=== PATIENT | male | born 1990 | race Caucasian/White ===

== ENCOUNTER 2018-11-02 13:03 | Emergency (ER) | payer BC, OTHER ==
[~2018-11-02] VITALS: Ht 185.4 cm; Wt 117.9 kg
[~2018-11-02 13:03] MED LIST: AMLO5TAB2 PO; NITR100C3 PO; PHEN50TA PO; QTP100T PO; TRAZODONE PO
--- OUTSIDE RECORDS SUMMARY | 2018-11-02 13:08 | XMS REPORT ---
Author Author NATI CARLEY [facility] Address [address] [place] [address] Care Team Providers Care Rope Twisting Machine Operator Name Role Phone NATI CARLEY Unavailable PROBLEMS Type Condition ICD9-CM Code [id number] Code Onset Dates Condition Status SNOMED Code Problem Bipolar disorder, in partial remission, most recent episode manic F31.73 Active 68504189 Problem Bipolar 1 disorder F31.9 Active 042017555 Problem Anxiety, generalized F41.1 Active 13524597 Problem Essential hypertension I10 Active 85190300 ALLERGIES No Known Allergies ENCOUNTERS Encounter Location Date Diagnosis [place] [id number] [place] [address]39[address] 7946 May, [place] [id number] [place] [address] 88323- 2745 Apr, Bipolar disorder, in partial remission, most recent episode manic F31.73 [place] [address] [place] [address] 80806- 5023 Dec, Bipolar disorder, in partial remission, most recent episode manic F31.73 and High risk medication use Z79.899 [place] [id number] [place] [address] 58280- 3631 14 Sep, 2017 Bipolar disorder, in partial remission, most recent episode manic F31.73 [place] [address] [place] [address] 82982- 3118 Sep, Essential hypertension I10 and Bipolar 1 disorder F31.9 [place] [address] [place] [address] 46221- 3410 08 Sep, 2017 Essential hypertension I10 and Bipolar 1 disorder F31.9 [place] [id number] [place] [address] 99360- 9247 Aug, Bipolar disorder, in partial remission, most recent episode manic F31.73 [facility] [address], [place] [address] Jul, Bipolar 1 disorder F31.9 and Anxiety, generalized F41.1 [facility] [id number] [address] Jul, Essential hypertension I10 and Bipolar 1 disorder F31.9 [facility] [id number], [place] [address] Jul, [facility] [address] [place] [id number] [place] [address] Jan, Essential hypertension I10 [facility] [address] [id number], [place] [address] Dec, Essential hypertension I10 [facility] [address] [id number], [place] [address] Nov, Upper respiratory tract infection, unspecified type J06.9 and Essential hypertension I10 [facility] [id number], [place] [address] Oct, [facility] [address] [id number] [id number] Oct, IMMUNIZATIONS No Known Immunizations SOCIAL HISTORY Never Assessed REASON FOR VISIT f/u Paula PLAN OF CARE Activity Details Follow Up 3 Months Reason: VITAL SIGNS Height 73 in 2017-12-15 Weight 262.7 lbs 2017-12-15 Heart Rate 72 bpm 2017-12-15 Respiratory Rate 20 2017-12-15 BMI 34.66 kg/m2 2017-12-15 Blood pressure systolic 130 mmHg 2017-12-15 Blood pressure diastolic 74 mmHg 2017-12-15 MEDICATIONS Medication Instructions Dosage Frequency Start Date End Date Duration Status Lisinopril 20 mg Orally Once a day 1 tablet 24h Active Seroquel 100 MG Orally at bedtime 0.5 tablet Active [place] Carbonate 600 MG Orally Twice a day 1 capsule 12h 30 days Active RESULTS No Results PROCEDURES No Known procedures INSTRUCTIONS MEDICATIONS ADMINISTERED No Known Medications MEDICAL (GENERAL) HISTORY Type Description Date Medical History Essential hypertension Hospitalization History [facility] 2009 Hospitalization History [place] 2010 [address] [place] [address]
--- OUTSIDE RECORDS SUMMARY | 2018-11-02 13:08 | XMS REPORT ---
Author Author NATI CARLEY [facility] Address [address] [place] [address] Care Team Providers Care Cigarette Vendor Name Role Phone NATI CARLEY Unavailable PROBLEMS Type Condition ICD9-CM Code [id number] Code Onset Dates Condition Status SNOMED Code Problem Bipolar disorder, in partial remission, most recent episode manic F31.73 Active 88207609 Problem Bipolar 1 disorder F31.9 Active 818217800 Problem Anxiety, generalized F41.1 Active 02027384 Problem Essential hypertension I10 Active 22130716 ALLERGIES No Information ENCOUNTERS Encounter Location Date Diagnosis [place] [address] [place] [address] 05936- 8540 Jul, [facility] [id number] [place] [address] 49328- 0603 May, Bipolar disorder, in partial remission, most recent episode manic F31.73 [facility] [id number] [place] [address] 03155- 7072 Apr, Bipolar disorder, in partial remission, most recent episode manic F31.73 and High risk medication use Z79.899 [facility] [id number] [place] [address] 21268- 2917 Apr, Bipolar disorder, in partial remission, most recent episode manic F31.73 [facility] [address] [place] [address] 52881- 2459 Dec, Bipolar disorder, in partial remission, most recent episode manic F31.73 and High risk medication use Z79.899 [place] [address], [place] [address] Sep, Bipolar disorder, in partial remission, most recent episode manic F31.73 [facility] [address], [place] [address] Sep, Essential hypertension I10 and Bipolar 1 disorder F31.9 [facility] [address], [place] [address] Sep, Essential hypertension I10 and Bipolar 1 disorder F31.9 [facility] [id number] [place] [address] 75691- 4074 Aug, Bipolar disorder, in partial remission, most recent episode manic F31.73 [facility] [address] [place] [address] 05581- 3785 Jul, Bipolar 1 disorder F31.9 and Anxiety, generalized F41.1 [facility] [address], [place] [address] 9[address] Jul, Essential hypertension I10 and Bipolar 1 disorder F31.9 [facility] [address] [place] [address] [place] [address] Jul, [facility] [address] [place] [address] [place] [address] Jan, Essential hypertension I10 [facility] [address] [place] [id number] [place] [address] Dec, Essential hypertension I10 [facility] [address] [place] [address] [place] [address] Nov, Upper respiratory tract infection, unspecified type J06.9 and Essential hypertension I10 [facility] [id number] [address] Oct, Essential hypertension I10 [place] [id number][place] [address] Oct, IMMUNIZATIONS No Known Immunizations SOCIAL HISTORY Never Assessed REASON FOR VISIT BH f/u DASH-MARÍA PLAN OF CARE Activity Details Follow Up 4 Weeks Reason: VITAL SIGNS Height 73 in 2018-04-05 Weight 259 lbs 2018-04-05 Heart Rate 82 bpm 2018-04-05 Respiratory Rate 20 2018-04-05 BMI 34.17 kg/m2 2018-04-05 Blood pressure systolic 128 mmHg 2018-04-05 Blood pressure diastolic 82 mmHg 2018-04-05 MEDICATIONS Medication Instructions Dosage Frequency Start Date End Date Duration Status Seroquel 25 MG Orally at bedtime 1 tablet 14 days Active Lisinopril 20 mg Orally Once a day 1 tablet 24h Active Abilify 5 MG Orally Once a day 1 tablet 24h Apr, 30 day(s) Active [place] Carbonate 600 MG Orally Twice a day 1 capsule 12h 30 days Active RESULTS No Results PROCEDURES No Known procedures INSTRUCTIONS MEDICATIONS ADMINISTERED No Known Medications MEDICAL (GENERAL) HISTORY Type Description Date Medical History Essential hypertension Hospitalization History [facility] 2009 Hospitalization History [place] 2010 Hospitalization History [address] [place] [address]
--- OUTSIDE RECORDS SUMMARY | 2018-11-02 13:08 | XMS REPORT ---
Author Author NATI CARLEY [facility] Address [address] [place] [address] Care Team Providers Care Regulator Tester Name Role Phone NATI CARLEY Unavailable PROBLEMS Type Condition ICD9-CM Code [id number] Code Onset Dates Condition Status SNOMED Code Problem Bipolar disorder, in partial remission, most recent episode manic F31.73 Active 08427242 Problem Bipolar 1 disorder F31.9 Active 769140733 Problem Anxiety, generalized F41.1 Active 52072852 Problem Essential hypertension I10 Active 05916096 ALLERGIES No Known Allergies ENCOUNTERS Encounter Location Date Diagnosis [place] [address] [place] [address] 89372- 0306 Jul, [facility] [id number] [place] [address] 61171- 6615 May, Bipolar disorder, in partial remission, most recent episode manic F31.73 [place] [address] [place] [address] 48127- 4476 Apr, Bipolar disorder, in partial remission, most recent episode manic F31.73 and High risk medication use Z79.899 [facility] [address] [place] [address] 51435- 6178 Apr, Bipolar disorder, in partial remission, most recent episode manic F31.73 [facility] [address] [place] [address] 60851- 3142 Dec, Bipolar disorder, in partial remission, most recent episode manic F31.73 and High risk medication use Z79.899 [place] [address], [place] [address] Sep, Bipolar disorder, in partial remission, most recent episode manic F31.73 [facility] [id number], [place] [address] 6[address] Sep, Essential hypertension I10 and Bipolar 1 disorder F31.9 [facility] [address], [place] [address] 1407 Sep, Essential hypertension I10 and Bipolar 1 disorder F31.9 [facility] [address], [place] [address] Aug, Bipolar disorder, in partial remission, most recent episode manic F31.73 [facility] [address]100[place], [place] [address] Jul, Bipolar 1 disorder F31.9 and Anxiety, generalized F41.1 [place] [address], [place] [address]- 6[address] Jul, Essential hypertension I10 and Bipolar 1 disorder F31.9 [facility] [address] [place], [id number] [address] Jul, [facility] [address] [id number] [address] Jan, Essential hypertension I10 [facility] [id number], [place] [address] Dec, Essential hypertension I10 [facility] [address] [place], [id number], [place] [address] Nov, Upper respiratory tract infection, unspecified type J06.9 and Essential hypertension I10 [facility] [id number] [address] Oct, Essential hypertension I10 [facility] [id number] [id number] Oct, IMMUNIZATIONS No Known Immunizations SOCIAL HISTORY Never Assessed REASON FOR VISIT f/u PLAN OF CARE Activity Details Follow Up 2 Months Reason: VITAL SIGNS Height 73 in 2018-05-11 Weight 267.5 lbs 2018-05-11 Heart Rate 96 bpm 2018-05-11 Respiratory Rate 20 2018-05-11 BMI 35.29 kg/m2 2018-05-11 Blood pressure systolic 160 mmHg 2018-05-11 Blood pressure diastolic 82 mmHg 2018-05-11 MEDICATIONS Medication Instructions Dosage Frequency Start Date End Date Duration Status Lisinopril 20 mg Orally Once a day 1 tablet 24h Active [place] Carbonate 600 MG Orally Twice a day 1 capsule 12h 30 days Active Abilify 5 MG Orally Once a day 1 tablet 24h Apr, 30 days Active RESULTS No Results PROCEDURES No Known procedures INSTRUCTIONS MEDICATIONS ADMINISTERED No Known Medications MEDICAL (GENERAL) HISTORY Type Description Date Medical History Essential hypertension Hospitalization History [facility] 2009 Hospitalization History [place] 2010 [address] [place] [address]
--- OUTSIDE RECORDS SUMMARY | 2018-11-02 13:08 | XMS REPORT ---
Author Author STEVE BRITO [facility] Address [address] [address] Care Team Providers Care Forger Helper Name Role Phone STEVE BRITO Unavailable PROBLEMS Type Condition ICD9-CM Code [id number] Code Onset Dates Condition Status SNOMED Code Problem Essential hypertension I10 Active 52382495 ALLERGIES Substance Reaction Event Type Date Status N.K.D.A. Unknown Non Drug Allergy Oct, Unknown SOCIAL HISTORY No smoking Hx information available PLAN OF CARE VITAL SIGNS MEDICATIONS Medication Instructions Dosage Frequency Start Date End Date Duration Status Lisinopril 10 MG Active RESULTS No Results PROCEDURES No Known procedures IMMUNIZATIONS No Known Immunizations
--- OUTSIDE RECORDS SUMMARY | 2018-11-02 13:08 | XMS REPORT ---
Author Author RAMÍREZ CISNEROS Organization [facility] Address [address] [place] [address] Care Team Providers Care Ceramic Design Engineer Name Role Phone RAMÍREZ CISNEROS Unavailable PROBLEMS Type Condition ICD9-CM Code [id number] Code Onset Dates Condition Status SNOMED Code Problem Bipolar disorder, in partial remission, most recent episode manic F31.73 Active 51917873 Problem Bipolar 1 disorder F31.9 Active 701028306 Problem Anxiety, generalized F41.1 Active 01821919 Problem Essential hypertension I10 Active 91810250 ALLERGIES No Information ENCOUNTERS Encounter Location Date Diagnosis [address] [address] Mar, [place] [address] [address] 13 Dec, 2017 Bipolar disorder, in partial remission, most recent episode manic F31.73 and High risk medication use Z79.899 [place] [id number] [place] [address] 70748- 0780 14 Sep, 2017 Bipolar disorder, in partial remission, most recent episode manic F31.73 [place] [id number] [place] [address] 91783- 6182 Sep, Essential hypertension I10 and Bipolar 1 disorder F31.9 [place] [id number] [place] [address] 16433- 7709 Sep, Essential hypertension I10 and Bipolar 1 disorder F31.9 [place] [address] [place] [address] 67148- 7381 Aug, Bipolar disorder, in partial remission, most recent episode manic F31.73 [place] [address] [address]- [address]3 Jul, Bipolar 1 disorder F31.9 and Anxiety, generalized F41.1 [facility] [id number], [place] [address] Jul, Essential hypertension I10 and Bipolar 1 disorder F31.9 [facility] [address] [place], [id number] [address] Jul, [facility] [address] [id number], [place] [address] Jan, Essential hypertension I10 [facility] [id number], [place] [address] Dec, Essential hypertension I10 [facility] [address] [place], [id number], [place] [address] 16 Nov, 2016 Upper respiratory tract infection, unspecified type J06.9 and Essential hypertension I10 [facility] [address] [place], [id number], [place] [address] Oct, Essential hypertension I10 [facility] [address] [id number] [address] Oct, IMMUNIZATIONS No Known Immunizations SOCIAL HISTORY Never Assessed REASON FOR VISIT Lab (walk-in) PLAN OF CARE VITAL SIGNS MEDICATIONS Unknown Medications RESULTS No Results PROCEDURES Procedure Date Ordered Result Body Site LIPID PANEL Sep 11, 2017 COMPREHEN METABOLIC PANEL Sep 11, 2017 ASSAY THYROID STIM HORMONE Sep 11, 2017 COMPLETE CBC W/AUTO DIFF WBC Sep 11, 2017 VENIPUNCT, ROUTINE* Sep 11, 2017 ASSAY OF LITHIUM Sep 11, 2017 INSTRUCTIONS MEDICATIONS ADMINISTERED No Known Medications MEDICAL (GENERAL) HISTORY Type Description Date Medical History Essential hypertension Hospitalization History [facility] 2009 Hospitalization History [place] 2010 Hospitalization History [address] 2011
--- OUTSIDE RECORDS SUMMARY | 2018-11-02 13:08 | XMS REPORT ---
Author Author NATI CARLEY [facility] Address [address] [place] [address] Care Team Providers Care Tar Heater Operator Name Role Phone NATI CARLEY Unavailable PROBLEMS Type Condition ICD9-CM Code [id number] Code Onset Dates Condition Status SNOMED Code Problem Bipolar disorder, in partial remission, most recent episode manic F31.73 Active 84555993 Problem Bipolar 1 disorder F31.9 Active 279020479 Problem Anxiety, generalized F41.1 Active 17614708 Problem Essential hypertension I10 Active 17492112 ALLERGIES No Information ENCOUNTERS Encounter Location Date Diagnosis [place] [address] [place] [address] 68691- 6290 Jul, [facility] [id number] [place] [address] 37797- 4344 May, Bipolar disorder, in partial remission, most recent episode manic F31.73 [facility] [id number] [place] [address] 13459- 7272 Apr, Bipolar disorder, in partial remission, most recent episode manic F31.73 and High risk medication use Z79.899 [facility] [id number] [place] [address] 01372- 3372 Apr, Bipolar disorder, in partial remission, most recent episode manic F31.73 [facility] [address] [place] [address] 99149- 4483 Dec, Bipolar disorder, in partial remission, most recent episode manic F31.73 and High risk medication use Z79.899 [place] [address], [place] [address] Sep, Bipolar disorder, in partial remission, most recent episode manic F31.73 [facility] [address]100[place], [place] [address]- 9[address] 11 Sep, 2017 Essential hypertension I10 and Bipolar 1 disorder F31.9 [facility] [address], [place] [address]- 97[address] 08 Sep, 2017 Essential hypertension I10 and Bipolar 1 disorder F31.9 [facility] [id number] [place] [address] 10135- 7689 Aug, Bipolar disorder, in partial remission, most recent episode manic F31.73 [facility] [address] [place] [address] 15130- 9369 Jul, Bipolar 1 disorder F31.9 and Anxiety, generalized F41.1 [place] [address], [place] [address]- [address] 26 Jul, 2017 Essential hypertension I10 and Bipolar 1 disorder F31.9 [facility] [address] [place], [place] [address] [place] [address] Jul, [facility] [address] [place] [address] [place] [address] Jan, Essential hypertension I10 [facility] [address] [id number] [place] [address] Dec, Essential hypertension I10 [facility] [address] [place] [address] [place] [address] 16 Nov, 2016 Upper respiratory tract infection, unspecified type J06.9 and Essential hypertension I10 [facility] [address] [id number] [address] Oct, Essential hypertension I10 [facility] [id number] [place] [id number] Oct, IMMUNIZATIONS No Known Immunizations SOCIAL HISTORY Never Assessed REASON FOR VISIT Lab (walk-in) PLAN OF CARE VITAL SIGNS MEDICATIONS Unknown Medications RESULTS No Results PROCEDURES Procedure Date Ordered Result Body Site COMPREHEN METABOLIC PANEL April 27, 2018 COMPLETE CBC W/AUTO DIFF WBC April 27, 2018 ASSAY OF LITHIUM April 27, 2018 ASSAY THYROID STIM HORMONE April 27, 2018 INSTRUCTIONS MEDICATIONS ADMINISTERED No Known Medications MEDICAL (GENERAL) HISTORY Type Description Date Medical History Essential hypertension Hospitalization History [facility] 2009 Hospitalization History [place] 2010 Hospitalization History [address] [place] [address]
--- OUTSIDE RECORDS SUMMARY | 2018-11-02 13:09 | XMS REPORT ---
Author Author NATI CARLEY Organization [facility] Address [address] [place] [address] Care Team Providers Care Vertical Punch Operator Name Role Phone CHRISCARLEY MONCADA Unavailable PROBLEMS Type Condition ICD9-CM Code [id number] Code Onset Dates Condition Status SNOMED Code Problem Bipolar disorder, in partial remission, most recent episode manic F31.73 Active 47361463 Problem Bipolar 1 disorder F31.9 Active 826449434 Problem Anxiety, generalized F41.1 Active 62034316 Problem Essential hypertension I10 Active 37038088 ALLERGIES No Known Allergies ENCOUNTERS Encounter Location Date Diagnosis [place] [id number] [place] [address] 12 Mar, 2018 [place] [id number] [place] [address]654[address] 13 Dec, 2017 Bipolar disorder, in partial remission, most recent episode manic F31.73 and High risk medication use Z79.899 [place] [id number] [place] [address] 74[address] 14 Sep, 2017 Bipolar disorder, in partial remission, most recent episode manic F31.73 [place] [id number] [place] [address] 5314 Sep, Essential hypertension I10 and Bipolar 1 disorder F31.9 [place] [id number] [place] [address] 16451- 1226 08 Sep, 2017 Essential hypertension I10 and Bipolar 1 disorder F31.9 [place] [id number] [place] [address]55- 8232 Aug, Bipolar disorder, in partial remission, most recent episode manic F31.73 [place] [address] [place] [address] Jul, Bipolar 1 disorder F31.9 and Anxiety, generalized F41.1 [facility] [address] [address] Jul, Essential hypertension I10 and Bipolar 1 disorder F31.9 [facility] [id number], [place] [address] Jul, [facility] [id number], [place] [address] Jan, Essential hypertension I10 [facility] [id number], [place] [address] Dec, Essential hypertension I10 [facility] [id number], [place] [address] 16 Nov, 2016 Upper respiratory tract infection, unspecified type J06.9 and Essential hypertension I10 [facility] [id number], [place] [address] Oct, Essential hypertension I10 [facility] [id number] [id number] Oct, IMMUNIZATIONS No Known Immunizations SOCIAL HISTORY Never Assessed REASON FOR VISIT f/u----LonDARRIAN PLAN OF CARE Activity Details Follow Up 3 Months Reason: VITAL SIGNS Height 73 in 2017-09-17 Weight 265 lbs 2017-09-17 Heart Rate 70 bpm 2017-09-17 Respiratory Rate 20 2017-09-17 BMI 34.96 kg/m2 2017-09-17 Blood pressure systolic 130 mmHg 2017-09-17 Blood pressure diastolic 76 mmHg 2017-09-17 MEDICATIONS Medication Instructions Dosage Frequency Start Date End Date Duration Status Seroquel 100 MG Orally at bedtime 1 tablet 30 days Active Lisinopril 20 mg Orally Once a day 1 tablet 24h Active [place] Carbonate 600 MG Orally Twice a day 1 capsule 12h 30 days Active RESULTS No Results PROCEDURES No Known procedures INSTRUCTIONS MEDICATIONS ADMINISTERED No Known Medications MEDICAL (GENERAL) HISTORY Type Description Date Medical History Essential hypertension Hospitalization History [facility] 2009 Hospitalization History [place] [address] [place] [address] [address]
--- OUTSIDE RECORDS SUMMARY | 2018-11-02 13:09 | XMS REPORT ---
Author Author STEVE BRITO [facility] Address [address] [address] Care Team Providers Care Escrow Clerk Name Role Phone STEVE BRITO Unavailable PROBLEMS Type Condition ICD9-CM Code [id number] Code Onset Dates Condition Status SNOMED Code Problem Essential hypertension I10 Active 60762432 ALLERGIES Substance Reaction Event Type Date Status N.K.D.A. Unknown Non Drug Allergy Oct, Unknown SOCIAL HISTORY No smoking Hx information available PLAN OF CARE Activity Details Follow Up 3 Months Reason: VITAL SIGNS Height 73 in 2016-10-14 Weight 273 lbs 2016-10-14 Temperature 97.4 degrees Fahrenheit 2016-10-14 Heart Rate 89 bpm 2016-10-14 Respiratory Rate 14 2016-10-14 BMI 36.01 kg/m2 2016-10-14 Blood pressure systolic 128 mmHg 2016-10-14 Blood pressure diastolic 80 mmHg 2016-10-14 MEDICATIONS Medication Instructions Dosage Frequency Start Date End Date Duration Status [place] Carbonate 600 MG Orally Three times a day 1 capsule 8h Active Lisinopril 10 mg Orally Once a day 1 tablet 24h 90 days Active RESULTS No Results PROCEDURES Procedure Date Ordered Related Diagnosis Body Site Office Visit, New Pt., Level 3 Oct 14, 2016 IMMUNIZATIONS No Known Immunizations
--- OUTSIDE RECORDS SUMMARY | 2018-11-02 13:09 | XMS REPORT ---
Author Author RAMÍREZ CISNEROS Organization [facility] Address [address] [place] [address] Care Team Providers Care Inspector [employer] Name Role Phone RAMÍREZ CISNEROS Unavailable PROBLEMS Type Condition ICD9-CM Code [id number] Code Onset Dates Condition Status SNOMED Code Problem Bipolar disorder, in partial remission, most recent episode manic F31.73 Active 76336588 Problem Bipolar 1 disorder F31.9 Active 447298283 Problem Anxiety, generalized F41.1 Active 06908671 Problem Essential hypertension I10 Active 46005428 ALLERGIES No Known Allergies ENCOUNTERS Encounter Location Date Diagnosis [address] [address] Mar, [address] [address] 13 Dec, 2017 Bipolar disorder, in partial remission, most recent episode manic F31.73 and High risk medication use Z79.899 [place] [id number] [place] [address] 14 Sep, 2017 Bipolar disorder, in partial remission, most recent episode manic F31.73 [place] [id number] [place] [address] Sep, Essential hypertension I10 and Bipolar 1 disorder F31.9 [place] [id number] [place] [address]70- 2[address] Sep, Essential hypertension I10 and Bipolar 1 disorder F31.9 [place] [id number] [place] [address]597[address] Aug, Bipolar disorder, in partial remission, most recent episode manic F31.73 [place] [id number] [place] [address]10- 4567 Jul, Bipolar 1 disorder F31.9 and Anxiety, generalized F41.1 [facility] [address] [facility] [id number] [address] Jul, Essential hypertension I10 and Bipolar 1 disorder F31.9 [facility] [address] [id number], [place] [address] Jul, [facility] [id number], [place] [address] Jan, Essential hypertension I10 [facility] [id number], [place] [address] Dec, Essential hypertension I10 [facility] [id number], [place] [address] Nov, Upper respiratory tract infection, unspecified type J06.9 and Essential hypertension I10 [facility] [address] [id number], [place] [address] Oct, [facility]ential [facility] [address] [id number] [id number] Oct, IMMUNIZATIONS No Known Immunizations SOCIAL HISTORY Never Assessed REASON FOR VISIT high blood bressure, med refills-[place] PLAN OF CARE VITAL SIGNS Height 73 in 2017-07-30 Weight 266.8 lbs 2017-07-30 Temperature 98.0 degrees Fahrenheit 2017-07-30 Heart Rate 84 bpm 2017-07-30 Respiratory Rate 18 2017-07-30 BMI 35.20 kg/m2 2017-07-30 Blood pressure systolic 142 mmHg 2017-07-30 Blood pressure diastolic 86 mmHg 2017-07-30 MEDICATIONS Medication Instructions Dosage Frequency Start Date End Date Duration Status Lisinopril 20 MG Orally Once a day 1 tablet 24h Active Seroquel 100 MG Orally Once a day 1 tablet 24h Active [place] Carbonate 600 MG Orally Three times a day 1 capsule 8h Active RESULTS No Results PROCEDURES No Known procedures INSTRUCTIONS MEDICATIONS ADMINISTERED No Known Medications MEDICAL (GENERAL) HISTORY Type Description Date Medical History Essential hypertension Hospitalization History [facility] 2009 Hospitalization History [place] [address] [place] [address]
--- OUTSIDE RECORDS SUMMARY | 2018-11-02 13:09 | XMS REPORT ---
Author Author STEVE BRITO Organization [facility] Address [address] [address] Care Team Providers Care Corporate Travel Coordinator Name Role Phone STEVE BRITO Unavailable PROBLEMS Type Condition ICD9-CM Code ESJ05-BF Code Onset Dates Condition Status SNOMED Code Problem Essential hypertension I10 Active 86773948 ALLERGIES No Known Allergies SOCIAL HISTORY Never Assessed PLAN OF CARE Activity Details Follow Up 2 Months Reason: VITAL SIGNS Height 73 in 2016-11-20 Weight 272 lbs 2016-11-20 Temperature 98.3 degrees Fahrenheit 2016-11-20 Heart Rate 106 bpm 2016-11-20 Respiratory Rate 12 2016-11-20 BMI 35.88 kg/m2 2016-11-20 Blood pressure systolic 160 mmHg 2016-11-20 Blood pressure diastolic 84 mmHg 2016-11-20 MEDICATIONS Medication Instructions Dosage Frequency Start Date End Date Duration Status Seroquel 100 MG Orally Once a day 1 tablet 24h Active Cipro 500 MG Orally Twice a day 1 tablet 12h Nov, Nov, 10 day(s) Active Robitussin Cough+Chest Andres DM 5-100 MG/5ML Orally 12 10 ml Nov, Nov, 10 days Active Lisinopril 10 mg Orally Once a day 1 tablet 24h 90 days Active [place] Carbonate 600 MG Orally Three times a day 1 capsule 8h Active RESULTS No Results PROCEDURES No Known procedures IMMUNIZATIONS No Known Immunizations MEDICAL (GENERAL) HISTORY Type Description Date Medical History Essential hypertension
--- OUTSIDE RECORDS SUMMARY | 2018-11-02 13:09 | XMS REPORT ---
Author Author STEVE BRITO [facility] Address [address] [address] Care Team Providers Care Tank Truck Driver Name Role Phone STEVE BRITO Unavailable PROBLEMS Type Condition ICD9-CM Code [id number] Code Onset Dates Condition Status SNOMED Code Problem Essential hypertension I10 Active 92015784 ALLERGIES No Information SOCIAL HISTORY Never Assessed PLAN OF CARE VITAL SIGNS MEDICATIONS Medication Instructions Dosage Frequency Start Date End Date Duration Status Lisinopril 10 mg Orally Once a day 1 tablet 24h 90 days Active RESULTS No Results PROCEDURES No Known procedures IMMUNIZATIONS No Known Immunizations MEDICAL (GENERAL) HISTORY Type Description Date Medical History Essential hypertension
--- OUTSIDE RECORDS SUMMARY | 2018-11-02 13:09 | XMS REPORT ---
Author Author RAMÍREZ CISNEROS Organization [facility] Address [address] [place] [address] Care Team Providers Care Legal Billing Analyst Name Role Phone RAMÍREZ CISNEROS Unavailable PROBLEMS Type Condition ICD9-CM Code FUS61-JU Code Onset Dates Condition Status SNOMED Code Problem Bipolar disorder, in partial remission, most recent episode manic F31.73 Active 12386953 Problem Bipolar 1 disorder F31.9 Active 847812822 Problem Anxiety, generalized F41.1 Active 04408309 Problem Essential hypertension I10 Active 56395058 ALLERGIES No Known Allergies ENCOUNTERS Encounter Location Date Diagnosis [address] [address] Mar, [address] [address] 13 Dec, 2017 Bipolar disorder, in partial remission, most recent episode manic F31.73 and High risk medication use Z79.899 [place] [id number] [place] [address] 14 Sep, 2017 Bipolar disorder, in partial remission, most recent episode manic F31.73 [place] [id number] [place] [address] Sep, Essential hypertension I10 and Bipolar 1 disorder F31.9 [place] [id number] [place] [address]167- 26[address] Sep, Essential hypertension I10 and Bipolar 1 disorder F31.9 [place] [id number] [place] [address] 42665- [address] Aug, Bipolar disorder, in partial remission, most recent episode manic F31.73 [place] [id number] [place] [address] Jul, Bipolar 1 disorder F31.9 [address] Anxiety, generalized F41.1 [facility] [address] [facility] [id number] [address] Jul, Essential hypertension I10 and Bipolar 1 disorder F31.9 [facility] [address] [id number] [address] Jul, [facility] [id number] [address] Jan, Essential hypertension I10 [facility] [id number] [address] Dec, Essential hypertension I10 [facility] [address] [id number] [address] Nov, Upper respiratory tract infection, unspecified type J06.9 and Essential hypertension I10 [facility] [address] [id number] [address] Oct, Essential hypertension I10 [facility] [place] [address] [facility] [id number] [place] [id number] Oct, IMMUNIZATIONS No Known Immunizations SOCIAL HISTORY Never Assessed REASON FOR VISIT transition-Sima DANIEL PLAN OF CARE VITAL SIGNS Height 73 in 2017-09-14 Weight 268.1 lbs 2017-09-14 Temperature 97.6 degrees Fahrenheit 2017-09-14 Heart Rate 74 bpm 2017-09-14 Respiratory Rate 18 2017-09-14 BMI 35.37 kg/m2 2017-09-14 Blood pressure systolic 136 mmHg 2017-09-14 Blood pressure diastolic 80 mmHg 2017-09-14 MEDICATIONS Medication Instructions Dosage Frequency Start Date End Date Duration Status Lisinopril 20 mg Orally Once a day 1 tablet 24h Active [place] Carbonate 600 MG Orally Twice a day 1 capsule 12h 30 days Active Seroquel 100 MG Orally at bedtime 1 tablet 30 days Active RESULTS No Results PROCEDURES No Known procedures INSTRUCTIONS MEDICATIONS ADMINISTERED No Known Medications MEDICAL (GENERAL) HISTORY Type Description Date Medical History Essential hypertension Hospitalization History [facility] 2009 Hospitalization History [place] 2010 [address] [place] [address] [address]
[2018-11-02] MEDS ORDERED: TETANUS,DIPTH,PERTUSS P/F (BOOSTRIX) 0.5 ML VIAL IM STA (13:17)
--- NOTE | 2018-11-02 13:23 | ED Upper Extremity ---
General Stated Complaint: FINGER LAC History of Present Illness Date Seen by Provider: Nov 02, 2018 Time Seen by Provider: 13:10 Initial Comments 28-year-old male presents for a laceration to his right fifth finger. 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 He denies any additional injuries. Onset: just prior to arrival Pain/Injury Location: right 5th finger Method of Injury: incised Allergies and Home Medications Allergies Coded Allergies: No Known Drug Allergies (Unverified , 12/25/11) Home Medications Amlodipine Besylate 5 Mg Tablet, 5 MG PO DAILY, (Reported) Nitrofurantoin Macrocrystal 100 Mg Capsule, 1 CAP PO BID, (Reported) Clcr <60 mL/minute: Contraindicated Phenytoin 50 Mg Tab.chew, 300 MG PO DAILY, (Reported) Quetiapine Fumarate 100 Mg Tablet, 100 MG PO BID, (Reported) [Trazodone] , 150 MG PO HS, (Reported) Patient Home Medication List Home Medication List Reviewed: Yes Review of Systems Constitutional: no symptoms reported, see HPI Skin: see HPI, other (puncture wound right 5th finger. ) All Other Systems Reviewed Negative Unless Noted: Yes Past Tpyebqk-Iqlanj-Kublnr Hx Past Med/Social Hx: Reviewed and Corrections made Patient Social History Alcohol Use: Occasionally Uses Recreational Drug Use: No Type Used: Electronic/Vapor Immunizations Up To Date Date of Influenza Vaccine: Jul 05, 2011 Past Medical History Reproductive Disorders: No Physical Exam Vital Signs Vital Signs - First Documented 11/02/18 13:10 Temp 97.8 Pulse 98 Resp 18 B/P (MAP) 159/103 (121) Pulse Ox 98 O2 Delivery Room Air Capillary Refill : Height, Weight, BMI Height: '" Weight: lbs. oz. kg; BMI Method: General Appearance: WD/WN, no apparent distress Cardiovascular: normal peripheral pulses, regular rate, rhythm, no murmur Respiratory: chest non-tender, lungs clear, normal breath sounds Gastrointestinal: normal bowel sounds, non tender, soft Hand: non-tender, normal ROM (at MCP, PIP and DIP right 5th finger. cap refil < 2 sec. Neuro vasc status intact. ), Right, abrasions (pin point puncture wound to tip of right 5th giner, no active bleeding or d/c. ) Neurologic/Tendon: normal sensation, normal motor functions, normal tendon functions Neurologic/Psychiatric: no motor/sensory deficits, alert, normal mood/affect, oriented x 3 Skin: normal color Progress/Results/Core Measures Results/Orders My Orders Orders - REGINA LANDERS Dipht,Pertuss(Acell),Tet Adult (Boostrix (11/02/18 13:17) Vital Signs/I&O 11/02/18 11/02/18 13:10 13:41 Temp 97.8 97.8 Pulse 98 98 Resp 18 18 B/P (MAP) 159/103 (121) 159/103 (121) Pulse Ox 98 98 O2 Delivery Room Air Room Air Progress Progress Note : Time: 13:10 Progress Note Pt seen and evaluated, tetanus vaccine to be given. Wound cleansed with sterile saline and Hibiclens. Occupational health notified of patient, request patient to present there after d/c. 1320 triple antibiotic ointment and sterile dressing applied. Charge instructions and return precautions reviewed with the patient. He will present to occupational health upon discharge from the emergency department. Departure Impression Primary Impression: Puncture wound of right little finger Disposition: 01 HOME, SELF-CARE Condition: Improved Departure-Patient Inst. Decision time for Depature: 13:20 Referrals: SHERIF HUFFMAN DO (Family) Primary Care Physician Patient Instructions: Skin Abrasions (DC) Add. Discharge Instructions: Keep right fifth finger clean and dry at all times. Wear gloves at work. Rinse the wound with peroxide 3 times a day and apply triple antibiotic ointment and a Band-Aid. Follow-up with your primary care doctor in 2-3 days if symptoms are not improving or worsen. Go to occupational health upon dismissal from the emergency department. Return to emergency department for new, urgent health care needs. REGINA LANDERS Nov 02, 2018 13:23
[2018-11-02 13:41] VITALS: BP 159/103
== END 2018-11-02 13:40 | disposition home or self-care (01) ==
LOC: EDUNIT# 13:03 → ER 13:05
DX: S61.236A Puncture wound without foreign body of right little finger without damage to nail, initial encounter (principal); Z23 Encounter for immunization; W25.XXXA Contact with sharp glass, initial encounter; Y92.59 Other trade areas as the place of occurrence of the external cause; Y99.0 Civilian activity done for income or pay
CPT/HCPCS: 90715; 99284

== ENCOUNTER 2019-09-11 10:45 | Emergency (ER) | payer BC, OTHER ==
[~2019-09-11] VITALS: Ht 185 cm; Wt 128.1 kg
--- NOTE | 2019-09-11 11:15 | ED EENT ---
History of Present Illness General Chief Complaint: Eye Problems Stated Complaint: L EYE RED/SWOLLEN/BURNING Nursing Triage Note: Patient ambulatory to ER FT1 with complaint of left eye redness with swelling. Patient states this started 2 days ago and he has a small raised bump in the bottom corner of his eye. He has had drainage and crusting of the eye. Source: patient Exam Limitations: no limitations History of Present Illness Date Seen by Provider: Sep 11, 2019 Time Seen by Provider: 11:14 Initial Comments 29-year-old male patient presents with complaints of left eyelid swelling, redness, and tenderness. Reports onset 2 days ago with a small bump on the lower lid. No improvement with warm compresses. Pain is worse with palpation. Location Injury Occurred: denies injury Timing/Duration: gradual Location: eye (L) Prearrival Treatment: other (warm compresses) Modifying Factors: Worse With Other (no improvement with compresses. Pain is worse with palpation) Allergies and Home Medications Allergies Coded Allergies: No Known Drug Allergies (Unverified , 12/25/11) Home Medications Amlodipine Besylate 5 Mg Tablet, 5 MG PO DAILY, (Reported) Nitrofurantoin Macrocrystal 100 Mg Capsule, 1 CAP PO BID, (Reported) Clcr <60 mL/minute: Contraindicated Phenytoin 50 Mg Tab.chew, 300 MG PO DAILY, (Reported) Quetiapine Fumarate 100 Mg Tablet, 100 MG PO BID, (Reported) [Trazodone] , 150 MG PO HS, (Reported) Patient Home Medication List Home Medication List Reviewed: Yes Review of Systems Review of Systems Constitutional: No chills, No dizziness, No fever, No malaise Eyes: Denies Blindness, Denies Blurred Vision (denies current blurred vision. Reports intermittent blurred vision.); Drainage, Inflammation, Pain (left lower lid pain); Denies Photophobia, Denies Vision Changes Ears: No Symptoms Reported Nose: no symptoms reported Mouth: no symptoms reported Throat: no symptoms reported Respiratory: no symptoms reported Cardiovascular: no symptoms reported Gastrointestinal: no symptoms reported Skin: see HPI Neurological: Denies Headache All Other Systems Reviewed Negative Unless Noted: Yes (Negative excepted noted.) Past Fncoomn-Qpnljf-Ytwxxq Hx Past Med/Social Hx: Reviewed Nursing Past Med/Soc Hx Patient Social History Alcohol Use: Denies Use Recreational Drug Use: Yes (THC) Smoking Status: Current Everyday Smoker Type Used: Cigarettes 2nd Hand Smoke Exposure: Yes Recent Foreign Travel: No Contact w/Someone Who Travel: No Recent Infectious Disease Expo: No Recent Hopitalizations: No Physical Abuse: No Sexual Abuse: No Mistreated: No Fear: No Immunizations Up To Date PED Vaccines UTD: Yes Date of Influenza Vaccine: Aug 05, 2019 Seasonal Allergies Seasonal Allergies: No Past Medical History Surgeries: No Respiratory: No Cardiac: Yes Hypertension Neurological: No Reproductive Disorders: No Genitourinary: No Gastrointestinal: No Musculoskeletal: No Endocrine: No HEENT: No Cancer: No Psychosocial: Yes Bipolar Blood Disorders: No Family Medical History Reviewed Nursing Family Hx No Pertinent Family Hx Physical Exam Vital Signs Vital Signs - First Documented 09/11/19 10:48 Temp 37.0 Pulse 82 Resp 14 B/P (MAP) 146/91 (109) Pulse Ox 97 O2 Delivery Room Air Height, Weight, BMI Height: 6'1.00" Weight: 260lbs. oz. [id number]; 37.00 BMI Method:Stated General Appearance: WD/WN, no apparent distress Eyes: right eye normal inspection, right eye lid inflammation (left lower lid inflammation noted), right eye stye (left lower lid); bilateral eye PERRL, bilateral eye EOMI Ears: bilateral ear auricle normal, bilateral ear canal normal, bilateral ear TM normal Nose: normal inspection Mouth/Throat: normal mouth inspection, pharynx normal; No excessive drooling, No mandibular swelling, No maxillary swelling Neck: non-tender, full range of motion, supple, normal inspection Cardiovascular: regular rate, rhythm, no murmur Respiratory: lungs clear, normal breath sounds, no respiratory distress, no accessory muscle use Skin: normal color, warm/dry, other (erythema and tenderness to the left lower lid) Progress/Results/Core Measures Results/Orders Vital Signs/I&O 09/11/19 10:48 Temp 37.0 Pulse 82 Resp 14 B/P (MAP) 146/91 (109) Pulse Ox 97 O2 Delivery Room Air Blood Pressure Mean: 109 POS Departure Impression Primary Impression: Stye external Qualified Codes: H00.015 - Hordeolum externum left lower eyelid Disposition: 01 HOME, SELF-CARE Condition: Improved Departure-Patient Inst. Decision time for Depature: 11:37 Referrals: [facility] (PCP/Family) Primary Care Physician Patient Instructions: Babak (Dawit) Add. Discharge Instructions: All discharge instructions reviewed with patient and/or family. Voiced understanding. Medications as instructed. Tylenol Extra Strength [id number] as directed for pain. Ibuprofen 800 mg by mouth every 8 hours as needed for pain. Warm compresses. Cleanse the left eye with no tears baby shampoo. Use a new washcloth with each cleansing. 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 Follow-up with your family practitioner as scheduled or sooner if needed. Return to the emergency department for worsened symptoms or any other concerns. Scripts Sulfamethoxazole/Trimethoprim (Bactrim Ds Tablet) 1 Each Tablet 1 EACH PO BID, #14 TAB 0 Refills Prov: SO PAINTER 09/11/19 Erythromycin Base (Erythromycin Opthalmic Ointment) 1 Gm Oint...g. 0 OP Q4H for 7 Days, #1 TUBE 0 Refills 1/2 inch Prov: SO PAINTER 09/11/19 Work/School Note: Work Release Form Date Seen in the Emergency Department: Sep 11, 2019 Return to Work: Sep 12, 2019 Images Eye 1 - Copy Copies To 1: [facility] Sep 11, 2019 11:14 POS
[2019-09-11] MEDS ORDERED: SULF1TAB35 PO (11:38)
[2019-09-11] MEDS ORDERED: ERYT1OIN6 OP (11:38)
[2019-09-11 11:53] VITALS: BP 146/91
== END 2019-09-11 11:54 | disposition home or self-care (01) ==
LOC: EDUNIT# 10:45 → ER 10:47
DX: H00.015 Hordeolum externum left lower eyelid (principal); I10 Essential (primary) hypertension; F31.9 Bipolar disorder, unspecified; F17.210 Nicotine dependence, cigarettes, uncomplicated
CPT/HCPCS: 99281

== ENCOUNTER 2020-04-21 21:13 | Emergency (ER) | payer BC, MEDICAID ==
[~2020-04-21] VITALS: Ht 185 cm; Wt 122.0 kg
[~2020-04-21 21:13] MED LIST changes: +ERYT1OIN6 OP; +SULF1TAB35 PO
[2020-04-21] MEDS ORDERED: IBUPROFEN 800 MG (MOTRIN) TAB PO ONE (21:30)
[2020-04-21] MEDS ORDERED: METHOCARBAMOL 750 MG (ROBAXIN) TAB PO ONE (21:30)
[2020-04-21 21:42] LABS: BILIRUBIN,URINE NEGATIVE (NEGATIVE); CLARITY,URINE CLEAR; COLOR,URINE YELLOW; GLUCOSE, URINE (UA) NEGATIVE (NEGATIVE); KETONES,URINE NEGATIVE (NEGATIVE); LEUKOCYTE ESTERASE ,URINE TRACE (NEGATIVE); NITRITE,URINE NEGATIVE (NEGATIVE); PROTEIN,URINE NEGATIVE (NEGATIVE)
[2020-04-21 21:48] LABS: RBC,URINE 0-2 /HPF; WBC,URINE 0-2 /HPF
[2020-04-21 21:49] LABS: BACTERIA,URINE TRACE /HPF; SQUAMOUS EPITHELIAL CELL,UR 0-2 /HPF
--- NOTE | 2020-04-21 21:54 | ED Back Pain ---
General Chief Complaint: Back Problems Stated Complaint: BACK PAIN Nursing Triage Note: pt reports back ongoing for 4 weeks. states it is intermittent and the pain comes and goes. denies injury Nursing Sepsis Screen: No Definite Risk Source of Information: Patient Exam Limitations: No Limitations History of Present Illness Date Seen by Provider: Apr 21, 2020 Time Seen by Provider: 21:51 Initial Comments To ER with right sided thoracolumbar back pain for about 1 week. 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 Denies any known injury. No exacerbating or alleviating factors. No fevers no chills no cough no shortness of breath. No urinary symptoms. No history of this. The pain waxes and wanes. Location: Lumbar Spine Timing/Duration: 1-2 Days Severity: Moderate Method of Injury: Unknown Associated Symptoms: No fever Allergies and Home Medications Allergies Coded Allergies: No Known Drug Allergies (Unverified , 12/25/11) Home Medications Amlodipine Besylate 5 Mg Tablet, 5 MG PO DAILY, (Reported) Erythromycin Base 1 Gm Oint...g., 0 OP Q4H 1/2 inch Prescribed by: SO PAINTER on 09/11/19 1138 Methocarbamol 750 Mg Tablet, 750 MG PO Q4H PRN for PAIN-MODERATE (5-7) Prescribed by: CANDELARIO PENA on 04/21/202201 Naproxen 500 Mg Tablet, 500 MG PO BID PRN for PAIN-SEVERE (8-10) Prescribed by: CANDELARIO PENA on 04/21/202201 Nitrofurantoin Macrocrystal 100 Mg Capsule, 1 CAP PO BID, (Reported) Clcr <60 mL/minute: Contraindicated Phenytoin 50 Mg Tab.chew, 300 MG PO DAILY, (Reported) Quetiapine Fumarate 100 Mg Tablet, 100 MG PO BID, (Reported) Sulfamethoxazole/Trimethoprim 1 Each Tablet, 1 EACH PO BID Prescribed by: SO PAINTER on 09/11/19 1138 [Trazodone] , 150 MG PO HS, (Reported) Patient Home Medication List Home Medication List Reviewed: Yes Review of Systems Constitutional: see HPI; No chills, No fever EENTM: see HPI Respiratory: no symptoms reported; No cough, No dyspnea on exertion Cardiovascular: see HPI; No chest pain Genitourinary: no symptoms reported Musculoskeletal: no symptoms reported Skin: no symptoms reported Psychiatric/Neurological: No Symptoms Reported Past Zyjxtkl-Tbvnku-Zglabr Hx Patient Social History Alcohol Use: Occasionally Uses Recreational Drug Use: No Smoking Status: Current Everyday Smoker Type Used: Cigarettes 2nd Hand Smoke Exposure: Yes Recent Foreign Travel: No Contact w/Someone Who Travel: No Recent Infectious Disease Expo: No Recent Hopitalizations: No Physical Abuse: No Sexual Abuse: No Mistreated: No Fear: No Immunizations Up To Date Tetanus Booster (TDap): Less than 5yrs PED Vaccines UTD: Yes Date of Influenza Vaccine: Aug 05, 2019 Seasonal Allergies Seasonal Allergies: No Past Medical History Surgeries: No Respiratory: No Cardiac: No Hypertension Neurological: No Reproductive Disorders: No Genitourinary: No Gastrointestinal: No Musculoskeletal: No Endocrine: No HEENT: No Cancer: No Psychosocial: Yes Bipolar Integumentary: No Blood Disorders: No Family Medical History No Pertinent Family Hx Physical Exam Vital Signs Vital Signs - First Documented 04/21/20 21:29 Temp 36.7 Pulse 61 Resp 18 B/P (MAP) 157/108 (124) Pulse Ox 99 Capillary Refill : Less Than 3 Seconds Height, Weight, BMI Height: 6'1.00" Weight: 260lbs. oz. 117.858498zn; 35.00 BMI Method:Stated General Appearance: No Apparent Distress, WD/WN Neck: Full Range of Motion, Normal Inspection Respiratory: Chest Non Tender, Lungs Clear, Normal Breath Sounds, No Accessory Muscle Use, No Respiratory Distress Gastrointestinal: Normal Bowel Sounds, Non Tender, Soft Neurologic/Psychiatric: Alert, Oriented x3 Skin: Normal Color, Warm/Dry Progress/Results/Core Measures Results/Orders Lab Results Laboratory Tests Test 04/21/20 21:36 04/21/20 21:38 Range/Units Urine Color YELLOW Urine Clarity CLEAR Urine pH 6.0 5-9 Urine Specific [place] >=1.030 1.016-1.022 Urine Protein NEGATIVE NEGATIVE Urine Glucose (UA) NEGATIVE NEGATIVE Urine Ketones NEGATIVE NEGATIVE Urine Nitrite NEGATIVE NEGATIVE Urine Bilirubin NEGATIVE NEGATIVE Urine Urobilinogen 0.2 < = 1.0 MG/DL Urine Leukocyte Esterase TRACE H NEGATIVE Urine RBC (Auto) NEGATIVE NEGATIVE Urine RBC 0-2 /HPF Urine WBC 0-2 /HPF Urine Squamous Epithelial Cells 0-2 /HPF Urine Crystals NONE /LPF Urine Bacteria TRACE /HPF Urine Casts NONE /LPF Urine Mucus NEGATIVE /LPF Urine Culture Indicated YES White Blood Count 8.1 4.3-11.0 10^3/uL Red Blood Count 4.36 4.35-5.85 10^6/uL Hemoglobin 13.7 13.3-17.7 G/DL Hematocrit 38 L 40-54 % Mean Corpuscular Volume 86 80-99 FL Mean Corpuscular Hemoglobin 31 25-34 PG Mean Corpuscular Hemoglobin Concent 37 H 32-36 G/DL Red Cell Distribution Width 12.2 10.0-14.5 % Platelet Count 274 130-400 10^3/uL Mean Platelet Volume 9.0 7.4-10.4 FL Neutrophils (%) (Auto) 60 42-75 % Lymphocytes (%) (Auto) 29 12-44 % Monocytes (%) (Auto) 8 0-12 % Eosinophils (%) (Auto) 3 0-10 % Basophils (%) (Auto) 0 0-10 % Neutrophils # (Auto) 4.9 1.8-7.8 X 10^3 Lymphocytes # (Auto) 2.3 1.0-4.0 X 10^3 Monocytes # (Auto) 0.7 0.0-1.0 X 10^3 Eosinophils # (Auto) 0.3 0.0-0.3 10^3/uL Basophils # (Auto) 0.0 0.0-0.1 10^3/uL Sodium Level 137 135-145 MMOL/L Potassium Level 3.6 3.6-5.0 MMOL/L Chloride Level 107 98-107 MMOL/L Glucose Level 95 70-105 MG/DL Calcium Level 9.4 8.5-10.1 MG/DL My Orders Orders - CANDELARIO PENA APRN Ct Abd/Pelvis Wo(Kidney Stone) (04/21/20 21:28) Cbc With Automated Diff (04/21/20 21:28) Basic Metabolic Panel (04/21/20 21:28) Ua Culture If Indicated (04/21/20 21:28) Ibuprofen Tablet (Motrin Tablet) (04/21/20 21:30) Methocarbamol Tablet (Robaxin Tablet) (04/21/20 21:30) Urine Culture (04/21/20 21:36) Vital Signs/I&O 04/21/20 04/21/20 21:29 21:58 Temp 36.7 Pulse 61 86 Resp 18 18 B/P (MAP) 157/108 (124) 140/101 Pulse Ox 99 98 Blood Pressure Mean: 124 Departure Impression Primary Impression: Thoracic back pain Qualified Codes: M54.6 - Pain in thoracic spine Disposition: 01 HOME, SELF-CARE Condition: Stable Departure-Patient Inst. Decision time for Depature: 22:00 Referrals: [facility] (PCP/Family) Primary Care Physician Patient Instructions: Acute Pain, Adult (DC) Add. Discharge Instructions: 1. Muscle relaxer and anti-inflammatory as directed. Return to ER for any concerns 2. Follow-up with your doctor next week for recheck. All discharge instructions reviewed with patient and/or family. Voiced understanding. Scripts Methocarbamol (Robaxin-750) 750 Mg Tablet 750 MG PO Q4H PRN for PAIN-MODERATE (5-7), #20 TAB Prov: CANDELARIO PENA APRN 04/21/20 Naproxen (Naprosyn) 500 Mg Tablet 500 MG PO BID PRN for PAIN-SEVERE (8-10), #30 TAB 0 Refills Prov: CANDELARIO PENA APRN 04/21/20 Work/School Note: Work Release Form Date Seen in the Emergency Department: Apr 21, 2020 Return to Work: Apr 24, 2020 Images Torso/Trunk 1 - Tenderness CANDELARIO PENA APRN Apr 21, 2020 21:54
[2020-04-21 21:58] VITALS: BP 140/101
[2020-04-21] MEDS ORDERED: NAPR-1071 PO (22:02)
[2020-04-21] MEDS ORDERED: METH-313 PO (22:02)
[2020-04-21 22:15] LABS: BASOPHILS % (AUTO) 0 % (0-10); EOSINOPHILS # (AUTO) 0.3 10^3/uL (0.0-0.3); EOSINOPHILS % (AUTO) 3 % (0-10); HEMATOCRIT 38 % (40-54); HEMOGLOBIN 13.7 G/DL (13.3-17.7); LYMPHOCYTES # (AUTO) 2.3 X 10^3 (1.0-4.0); LYMPHOCYTES % (AUTO) 29 % (12-44); MEAN CORPUSCULAR HEMOGLOBIN 31 PG (25-34); MEAN CORPUSCULAR HGB CONC 37 G/DL (32-36); MEAN CORPUSCULAR VOLUME 86 FL (80-99); MONOCYTES # (AUTO) 0.7 X 10^3 (0.0-1.0); MONOCYTES % (AUTO) 8 % (0-12); NEUTROPHILS # (AUTO) 4.9 X 10^3 (1.8-7.8); NEUTROPHILS % (AUTO) 60 % (42-75); PLATELET COUNT 274 10^3/uL (130-400); RED CELL DISTRIBUTION WIDTH 12.2 % (10.0-14.5); WHITE BLOOD COUNT 8.1 10^3/uL (4.3-11.0)
[2020-04-21 22:24] LABS: CHLORIDE 107 MMOL/L (98-107); POTASSIUM 3.6 MMOL/L (3.6-5.0); SODIUM 137 MMOL/L (135-145)
[2020-04-21 22:25] LABS: CALCIUM 9.4 MG/DL (8.5-10.1)
[2020-04-21 22:26] LABS: GLUCOSE 95 MG/DL (70-105)
[2020-04-21 22:27] LABS: CARBON DIOXIDE 19 MMOL/L (21-32)
[2020-04-21 22:30] LABS: CREATININE SERUM 0.91 MG/DL (0.60-1.30); GFR ESTIMATED > 60
[2020-04-21 22:31] LABS: BUN/CREATININE RATIO 11
--- NOTE | 2020-04-22 07:37 | Diagnostic Imaging Report ---
EXAMINATION: CT Abdomen Pelvis without contrast. TECHNIQUE: Multiple contiguous axial images were obtained through the abdomen and pelvis without the use of intravenous contrast. All CT scans use one or more of the following dose optimizing techniques: automated exposure control, MA and/or KvP adjustment based on a patient size and exam type, or iterative reconstruction. HISTORY: Back pain COMPARISON: None available. FINDINGS: Limited views of the lower thorax are unremarkable. The liver is normal without focal lesion. There is no biliary ductal dilation. There is a small amount of sludge in gallbladder. Pancreas is normal. Spleen is borderline enlarged measuring 15 cm craniocaudally. Adrenal glands are normal. The kidneys are normal. There is no hydronephrosis. Urinary bladder is normal. Visualized bowel is normal in caliber without obstruction or inflammation. The appendix is normal. No free fluid or air. No abdominal or pelvic lymphadenopathy. Aorta is normal in caliber without aneurysm. There are no suspicious osseus lesions. IMPRESSION: 1. Mild enlargement of the spleen, otherwise normal exam. Dictated by: Dictated on workstation # [id number]
== END 2020-04-21 22:39 | disposition home or self-care (01) ==
LOC: EDUNIT# 21:13 → ER 21:15
DX: M54.6 Pain in thoracic spine (principal); I10 Essential (primary) hypertension; F31.9 Bipolar disorder, unspecified; F17.210 Nicotine dependence, cigarettes, uncomplicated
CPT/HCPCS: 36415; 74176; 80048; 81000; 85025; 87077; 87088

== ENCOUNTER 2022-07-10 18:42 | Inpatient (IN) | payer MEDICAID, OTHER ==
[~2022-07-10] VITALS: Ht 188 cm; Wt 117.0 kg
[~2022-07-10 18:42] MED LIST changes: +METH-313 PO; +NAPR-1071 PO; -SULF1TAB35 PO; +SULF1TAB38 PO
[2022-07-10] MEDS ORDERED: TETANUS,DIPTH,PERTUSS P/F (BOOSTRIX) 0.5 ML VIAL IM ONE (19:00)
[2022-07-10] MEDS ORDERED: LACTATED RINGERS 1,000 ML IV ONE (19:00)
[2022-07-10 19:04] LABS: BASOPHILS % (AUTO) 0 % (0-10); EOSINOPHILS # (AUTO) 0.1 10^3/uL (0.0-0.3); EOSINOPHILS % (AUTO) 1 % (0-10); HEMATOCRIT 39 % (40-54); HEMOGLOBIN 14.4 g/dL (13.3-17.7); LYMPHOCYTES % (AUTO) 20 % (12-44); MEAN CORPUSCULAR HEMOGLOBIN 32 pg (25-34); MEAN CORPUSCULAR HGB CONC 37 g/dL (32-36); MEAN CORPUSCULAR VOLUME 86 fL (80-99); MEAN PLATELET VOLUME 8.9 fL (9.0-12.2); MONOCYTES # (AUTO) 0.6 10^3/uL (0.0-1.0); MONOCYTES % (AUTO) 7 % (0-12); NEUTROPHILS % (AUTO) 72 % (42-75); PLATELET COUNT 236 10^3/uL (130-400); WHITE BLOOD COUNT 9.8 10^3/uL (4.3-11.0)
--- NOTE | 2022-07-10 19:10 | ED General ---
General Chief Complaint: Neurological Problems Stated Complaint: SEIZURE Nursing Triage Note: pt to room by [facility]. ems reports pt was at [facility] getting medications refilled when he had a seizure lasting approx 30 seconds. pt mother reported to ems he had one seizure in the past but it was a very long time ago. ems reports pt was lowered to the floor by his father. no injuries obtained during seizure. ems also reports pt father states pt "bumped his head earlier today" which is what a red spot on the back of the head and red spot to nose were obtained. pt is lethargic on arrival. oriented to person and place during triage Source of Information: Patient (PT IS VERY LIMITED HISTORIAN AND IS SOMEWHAT CONFUSED AT THIS TIME. ), Other (MOTHER AND HER S.O. GIVE MOST INFORMATION. ) History of Present Illness Date Seen by Provider: Jul 10, 2022 Time Seen by Provider: 18:48 Initial Comments PT ARRIVES VIA EMS FROM [facility] PT HAD A WITNESSED SEIZURE AT [facility]--WAS SITTING IN A CHAIR AND WAS ASSISTED DOWN TO THE FLOOR SEIZURE LASTED APPROXIMATELY 30 SECONDS NO INJURY FROM THE SEIZURE NO INCONTINENCE NO TONGUE BITING PT IS POST-ICTAL ON ARRIVAL--SOMEWHAT DROWSY, CONFUSED, NO RECOLLECTION OF EVENTS PRIOR TO ARRIVAL OR MANY OF TODAY'S EVENTS. MOM AND HER S.O. ARE HERE ON ARRIVAL THEY REPORT THAT PT HAS HAD 1 SEIZURE A FEW YEARS AGO--NO TREATMENT. MOM CANNOT RECALL DETAILS IT WAS A LONG TIME AGO. THEY ALSO REPORT THAT HE DRINKS VERY HEAVILY EVERY DAY HE WAS VERY INTOXICATED ON THURSDAY, AND DID INJURE HIS NOSE ON THURSDAY NIGHT WHILE HE WAS DRINKING HE WAS ARRESTED ON THURSDAY NIGHT, AND HAS BEEN IN [facility] IN [place], UNTIL HIS MOTHER BAILED HIM OUT LAST NIGHT PT HAS BEEN AT MOM'S HOUSE ALL DAY TODAY PT HAS NOT HAD ANY ALCOHOL SINCE BEING RELEASED FROM [facility]. PT DID EAT SAUSAGE BISCUITS FOR BREAKFAST AND HAD CEREAL FOR LUNCH WERE ON THEIR WAY TO EAT TONIGHT, WHEN THEY DECIDED TO GO TO [facility] TO GET HIM BACK ON HIS BIPOLAR MEDICATIONS--HAS NOT TAKEN ANY FOR OVER A YEAR. THIS IS WHEN HE HAD THE SEIZURE HE HAS AN ABRASION/LACERATION TO HIS NOSE--MOM STATES THAT OCCURRED ON THURSDAY NIGHT WHEN HE WAS DRINKING. HE DID NOT SEEK CARE FOR THAT, HE WAS TAKEN TO [facility] THAT NIGHT. THEY ALSO REPORT THAT HE DID BUMP THE BACK OF HIS HEAD EARLIER TODAY, WHILE HE WAS ON AN INVERSION TABLE AT HOME. THIS WAS WITNESSED BY FAMILY. HE DID NOT HAVE LOSS OF CONSCIOUSNESS, AND HAD BEEN ACTING NORMAL AFTER THAT. ON ARRIVAL, PT IS CONFUSED, SLOW MENTATION, AND DOES NOT RECALL EVENTS PRIOR TO ARRIVAL AND IS UNABLE TO REMEMBER MUCH OF ANYTHING AT THIS TIME. HE DOES NOT REMEMBER IF HE ATE TODAY, OR IF HE SLEPT LAST NIGHT PT INITIALLY DENIES PAIN ANYWHERE, BUT ON QUESTIONING HIM IF HE HAS A HEADACHE, HE STATES YES. DENIES NECK OR BACK PAIN DENIES PARESTHSESIAS OR MOTOR DEFICITS DENIES NOSE OR FACIAL PAIN DENIES VISION CHANGES DENIES NAUSEA/VOMITING PT DOES HAVE A HISTORY OF HTN AND HAS BEEN PRESCRIBED LISINOPRIL. IS UNKNOWN WHEN HE LAST TOOK IT. PT IS NOT ON ASPIRIN OR BLOOD THINNERS LAST TETANUS IS UNKNOWN PT HAS HAD COVID-19 VACCINE X 2. ON REVIEW OF OLD CHART, PT WAS ADMITTED IN DECEMBER OF 2011 FOR A NEW ONSET SEIZURE--HAD AT LEAST 2 WITNESSED SEIZURES PT WAS ALSO DRINKING HEAVILY EVERY DAY AT THAT TIME WELL, AND WAS ALSO USING METHAMPHETAMINES AND THC--HE HAD A NORMAL EEG, AND HAD A PSYCH EVALUATION AT THAT TIME WHILE IN HOSPITAL. SEIZURES WERE FELT TO BE DRUG AND ALCOHOL-RELATED. NEVER FOLLOWED UP WITH NEUROLOGIST. PCP: [facility] Allergies and Home Medications Allergies Coded Allergies: No Known Drug Allergies (Unverified , 12/25/11) Patient Home Medication List Home Medication List Reviewed: Yes Amlodipine Besylate (Amlodipine Besylate) 5 Mg Tablet, 5 MG PO DAILY, (Reported) Entered as Reported by: COLLIN STRINGER on 12/27/11 1335 Erythromycin Base (Erythromycin Opthalmic Ointment) 1 Gm Oint...g., 0 OP Q4H Prescribed by: SO PAINTER on 09/11/19 1138 Methocarbamol (Robaxin-750) 750 Mg Tablet, 750 MG PO Q4H PRN for PAIN-MODERATE (5-7) Prescribed by: CANDELARIO PENA on 04/21/202201 Naproxen (Naprosyn) 500 Mg Tablet, 500 MG PO BID PRN for PAIN-SEVERE (8-10) Prescribed by: CANDELARIO PENA on 04/21/202201 Nitrofurantoin Macrocrystal (Macrobid 100 Mg) 100 Mg Capsule, 1 CAP PO BID, (Reported) Entered as Reported by: COLLIN STRINGER on 12/27/11 1335 Phenytoin (Dilantin) 50 Mg Tab.chew, 300 MG PO DAILY, (Reported) Entered as Reported by: COLLIN STRINGER on 12/27/11 1335 Quetiapine Fumarate (Seroquel 100 Mg) 100 Mg Tablet, 100 MG PO BID, (Reported) Entered as Reported by: CHIKIS CANTU on 12/25/111801 Sulfamethoxazole/Trimethoprim (Bactrim Ds Tablet) 1 Each Tablet, 1 EACH PO BID Prescribed by: SO PAINTER on 09/11/19 1138 [Trazodone] , 150 MG PO HS, (Reported) Entered as Reported by: CHIKIS CANTU on 12/25/111801 Review of Systems Review of Systems Constitutional: see HPI EENTM: see HPI Respiratory: no symptoms reported Cardiovascular: no symptoms reported Gastrointestinal: no symptoms reported Genitourinary: no symptoms reported Musculoskeletal: no symptoms reported Skin: see HPI Psychiatric/Neurological: See HPI Hematologic/Lymphatic: No Symptoms Reported Immunological/Allergic: no symptoms reported Past Krgazil-Jvgfjb-Bjnsro Hx Patient Social History Tobacco Use?: Yes Tobacco type used: Cigarettes Smoking Status: Current Everyday Smoker Use of E-Cig and/or Vaping dev: Yes E-Cig or Vaping type used: Nicotine Use of E-Cig and/or Vaping Dez: Current Everyday User Substance use?: Yes Substance type: Methamphetamine, Marijuana Alcohol Use?: Yes Alcohol type: Beer, Hard Liquor Alcohol Frequency: Daily Immunizations Up To Date Tetanus Booster (TDap): Less than 5yrs PED Vaccines UTD: Yes Influenza Vaccine Up-to-Date: No; Not Current Seasonal Allergies Seasonal Allergies: No Past Medical History Surgeries: No Respiratory: No Cardiac: Yes Hypertension Neurological: No Reproductive Disorders: No Genitourinary: No Gastrointestinal: No Musculoskeletal: No Endocrine: No HEENT: No Cancer: No Psychosocial: Yes (NON COMPLIANT WITH MEDICATIONS) Sleep Difficulties, Anxiety, Bipolar Integumentary: No Blood Disorders: No Family Medical History No Pertinent Family Hx PT WAS ADMITTED 12/2011 FOR NEW ONSET SEIZURES PT WAS DRINKING HEAVILY EVERY DAY AT THAT TIME, ADDITIONALLY, HE WAS ALSO USING METHAMPHETAMINES AND MARIJUANA. EEG DONE AT THAT TIME WAS NORMAL. NO NEUROLOGY FOLLOW UP. SEIZURES WERE FELT TO BE DRUG AND ALCOHOL RELATED/ ALCOHOL-WITHDRAWL RELATED Physical Exam Vital Signs Vital Signs - First Documented 07/10/22 18:47 Temp 36.8 Pulse 107 Resp 24 B/P (MAP) 154/100 (118) Pulse Ox 96 Capillary Refill : Height, Weight, BMI Height: 6'1.00" Weight: 260lbs. oz. 117.750291ld; 34.00 BMI Method:Stated General Appearance: Other (PT IS SOMEWHAT DROWSY AND LETHARGIC, SLOW MENTATION, AND CONFUSED--CONSISTENT WITH POST-ICTAL STATE. HE IS NOT IN ANY ACUTE DISTRESS. HE IS COOPERATIVE. SPEECH IS CLEAR. NO INCONTINENCE. ) HEENT: PERRL/EOMI, TMs Normal, Normal ENT Inspection, Pharynx Normal, Other (HAS OLD SCABBED WOUND TO BRIDGE OF NOSE, WITH MILD SURROUNDING ERYTHEMA. NO FLUCUTANCE OR DRAINAGE. HAS SMALL RED SPOT TO BACK OF HEADK--FAMILY REPORT THIS IS FROM HIM BUMPING THE BACK OF HIS HEAD EARLIER TODAY ON AN INVERSION TABLE. 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 ORIENTED TO PERSON AND TOWN. OTHERWISE IS DISOREIENTED AND NO RECOLLECTION OF EVENTS PRIOR TO ARRIVAL OR EVENTS EARLIER TODAY OR ANY TIME RECENTLY. ) Skin: Normal Color, Warm/Dry, Other ( ABOVE) Progress/Results/Core Measures Suspected Sepsis SIRS Temperature: Pulse: 107 Respiratory Rate: 24 Laboratory Tests 07/10/22 18:45: White Blood Count 9.8 Blood Pressure 154 /100 Mean: 118 Laboratory Tests 07/10/22 18:45: Creatinine 1.22, Platelet Count 236, Total Bilirubin 0.4 Results/Orders Lab Results Laboratory Tests Test 07/10/22 18:45 07/10/22 19:15 07/10/22 19:25 Range/Units White Blood Count 9.8 4.3-11.0 10^3/uL Red Blood Count 4.52 4.30-5.52 10^6/uL Hemoglobin 14.4 13.3-17.7 g/dL Hematocrit 39 L 40-54 % Mean Corpuscular Volume 86 80-99 fL Mean Corpuscular Hemoglobin 32 25-34 pg Mean Corpuscular Hemoglobin Concent 37 H 32-36 g/dL Red Cell Distribution Width 12.2 10.0-14.5 % Platelet Count 236 130-400 10^3/uL Mean Platelet Volume 8.9 L 9.0-12.2 fL Immature Granulocyte % (Auto) 0 % Neutrophils (%) (Auto) 72 42-75 % Lymphocytes (%) (Auto) 20 12-44 % Monocytes (%) (Auto) 7 0-12 % Eosinophils (%) (Auto) 1 0-10 % Basophils (%) (Auto) 0 0-10 % Neutrophils # (Auto) 7.0 1.8-7.8 10^3/uL Lymphocytes # (Auto) 2.0 1.0-4.0 10^3/uL Monocytes # (Auto) 0.6 0.0-1.0 10^3/uL Eosinophils # (Auto) 0.1 0.0-0.3 10^3/uL Basophils # (Auto) 0.0 0.0-0.1 10^3/uL Immature Granulocyte # (Auto) 0.0 0.0-0.1 10^3/uL Sodium Level 137 135-145 MMOL/L Potassium Level 4.0 3.6-5.0 MMOL/L Chloride Level 104 98-107 MMOL/L Carbon Dioxide Level 18 L 21-32 MMOL/L Anion Gap 15 H 5-14 MMOL/L Blood Urea Nitrogen 13 7-18 MG/DL Creatinine 1.22 0.60-1.30 MG/DL Estimat Glomerular Filtration Rate 81 BUN/Creatinine Ratio 11 Glucose Level 111 H 70-105 MG/DL Calcium Level 9.4 8.5-10.1 MG/DL Corrected Calcium 8.5-10.1 MG/DL Magnesium Level 2.1 1.6-2.4 MG/DL Total Bilirubin 0.4 0.1-1.0 MG/DL Aspartate Amino Transf (AST/SGOT) 17 5-34 U/L Alanine Aminotransferase (ALT/SGPT) 24 0-55 U/L Alkaline Phosphatase 83 40-136 U/L Total Creatine Kinase 230 H 30-200 U/L Creatine Kinase MB 1.9 <6.6 NG/ML Myoglobin 124.7 H 10.0-92.0 NG/ML Total Protein 7.4 6.4-8.2 GM/DL Albumin 4.6 H 3.2-4.5 GM/DL Acetaminophen Level < 10 L 10-30 UG/ML Serum Alcohol < 10 <10 MG/DL Urine Color YELLOW Urine Clarity CLEAR Urine pH 6.0 5-9 Urine Specific [place] 1.020 1.016-1.022 Urine Protein NEGATIVE NEGATIVE Urine Glucose (UA) NEGATIVE NEGATIVE Urine Ketones NEGATIVE NEGATIVE Urine Nitrite NEGATIVE NEGATIVE Urine Bilirubin NEGATIVE NEGATIVE Urine Urobilinogen 0.2 < = 1.0 MG/DL Urine Leukocyte Esterase NEGATIVE NEGATIVE Urine RBC (Auto) TRACE-I H NEGATIVE Urine RBC 0-2 /HPF Urine WBC 0-2 /HPF Urine Squamous Epithelial Cells NONE /HPF Urine Crystals NONE /LPF Urine Bacteria TRACE /HPF Urine Casts PRESENT /LPF Urine Hyaline Casts 2-5 H /LPF Urine Mucus NEGATIVE /LPF Urine Other LG SPERM H /HPF Urine Culture Indicated NO Urine Opiates Screen NEGATIVE NEGATIVE Urine Oxycodone Screen NEGATIVE NEGATIVE Urine Methadone Screen NEGATIVE NEGATIVE Urine Propoxyphene Screen NEGATIVE NEGATIVE Urine Barbiturates Screen NEGATIVE NEGATIVE Ur Tricyclic Antidepressants Screen NEGATIVE NEGATIVE Urine Phencyclidine Screen NEGATIVE NEGATIVE Urine Amphetamines Screen NEGATIVE NEGATIVE Urine Methamphetamines Screen NEGATIVE NEGATIVE Urine Benzodiazepines Screen NEGATIVE NEGATIVE Urine Cocaine Screen NEGATIVE NEGATIVE Urine Cannabinoids Screen NEGATIVE NEGATIVE Influenza Type A (RT-PCR) Not Detected Not Detecte Influenza Type B (RT-PCR) Not Detected Not Detecte SARS-CoV-2 RNA (RT-PCR) Not Detected Not Detecte My Orders Orders - EDWARD NAVAS DO Ed Iv/Invasive Line Start (07/10/22 18:58) Ekg Tracing (07/10/22 18:58) Monitor-Rhythm Ecg Trace Only (07/10/22 18:58) Ct Head/Face/Cervical Wo (07/10/22 18:58) Chest 1 View, Ap/Pa Only (07/10/22 18:58) Acetaminophen (07/10/22 18:58) Alcohol (07/10/22 18:58) Cbc With Automated Diff (07/10/22 18:58) Comprehensive Metabolic Panel (07/10/22 18:58) Creatine Kinase (07/10/22 18:58) Creatine Kinase Mb (07/10/22 18:58) Drug Screen Stat (Urine) (07/10/22 18:58) Magnesium (07/10/22 18:58) Ua Culture If Indicated (07/10/22 18:58) Myoglobin Serum (07/10/22 18:58) Ed Iv/Invasive Line Start (07/10/22 18:58) Lactated Ringers (Lr 1000 Ml Iv Solution (07/10/22 19:00) Covid 19 Inhouse Test (07/10/22 18:58) Dipht,Pertuss(Acell),Tet Adult (Boostrix (07/10/22 19:00) Influenza A And B By Pcr (07/10/22 18:58) Isolation Central Supply Req (07/10/22 18:58) Medications Given in ED Vital Signs/I&O 07/10/22 18:47 Temp 36.8 Pulse 107 Resp 24 B/P (MAP) 154/100 (118) Pulse Ox 96 Capillary Refill : Blood Pressure Mean: 118 Progress Note : Progress Note GIVEN: -IV FLUIDS -DPT VACCINE 1946--PT SUDDENLY OUT OF THE BLUE HE BEGAN CURSING AND YELLING AT "AVNI"--MOM'S S.O.--SECTION MAINTAINER WAS STARTING TO DO EKG, AND NO ONE ELSE WAS IN THE ROOM, AND DOOR WAS OPEN AND PT WAS IN DIRECT VIEW OF NURSING STAFF. PT HAD BEEN CALM AND COOPERATIVE IMMEDIATELY PRIOR TO THAT. PT WAS RE-DIRECTED AND IMMEDIATELY CALMED. MOM AND HER S.O. WERE THEN TAKEN BACK TO PT'S ROOM, THEY LATER LEFT--DID NOT INFORM STAFF THEY WERE LEAVING 2109--PT SUDDENLY AGITATED, ANXIOUS, TRYING TO GET OUT OF BED, SEEMS DISORIENTED, TALKING NON-SENSICALLY AT TIMES, BUT SPEECH IS CLEAR. PT HAS RIPPED OUT HIS IV, RIPPED OFF ALL MONITORING DEVICES. PT RE-DIRECTED AND IMMEDIATELY CALMED AGAIN. WHEN ASKED WHY HE DID THIS HE STATES HE DOESN'T KNOW, THEN RAMBLES ON NON-SENSICALLY. HE RE-DIRECTS AND TALKS NORMALLY AGAIN. ECG Initial ECG Impression Date: Jul 10, 2022 Initial ECG Impression Time: 19:50 Initial ECG Rate: 99 Initial ECG Rhythm: Normal Sinus Diagnostic Imaging Comments CXR--PER RADIOLOGIST REPORT AT 1944 FINDINGS: Heart size and mediastinal contours are unremarkable. There is no identified pneumothorax. There is no large pleural effusion. There is no identified focal airspace consolidation. IMPRESSION: No identified acute cardiopulmonary abnormality. CT HEAD/MAXILLOFACIALS/CERVICAL SPINE--PER RADIOLOGIST REPORT AT 195 FINDINGS: CT HEAD: No intracranial hemorrhage, mass effect, hydrocephalus, or extra-axial fluid collections. No CT evidence of a territorial infarction. The skull base and calvarium are intact. Mastoids are clear. CT MAXILLOFACIAL: Polypoid mucosal thickening in the maxillary sinuses. No maxillofacial fractures. Evaluation of the mandible is limited by motion. Normal alignment of the temporomandibular joints. The orbits are unremarkable. CT cervical spine: Normal alignment. Vertebral body heights are preserved. No fractures. No substantial spondylotic change. Visualized paravertebral soft tissues are unremarkable. Lung apices are clear. IMPRESSION: No acute intracranial or cervical spine CT findings. No maxillofacial fractures. Reviewed: Reviewed by Me Departure Communication (Admissions) 2004--SPOKE WITH DR. WILKINSON, HOSPITALIST. ACCEPTS PT FOR ADMIT. ORDERS NOTED 2019--CALLED E-ICU, PHYSICIAN IS CURRENTLY ON ANOTHER CALL. WILL TRY TO CALL BACK LATER. LATER I WAS ABLE TO SPEAK WITH E-ICU PHYSICIAN, AND GAVE REPORT. Impression Primary Impression: Witnessed seizure Additional Impressions: SUSPECTED ALCOHOL WITHDRAWL SEIZURE Alcoholism LACERATION TO NOSE WITH MILD INFECTION Opywzkqarl-swjjxzpzo-puwnral (DPT) vaccination administered at current visit POSSIBLE HALLUCINATIONS Minor head injury without loss of consciousness Disposition: ADMITTED INPATIENT Condition: Stable Admissions Decision to Admit Reason: Admit from ER (General) Decision to Admit/Date: Jul 10, 2022 Time/Decision to Admit Time: 20:05 Departure-Patient Inst. Referrals: [facility] (PCP/Family) Primary Care Physician EDWARD NAVAS DO Jul 10, 2022 19:10
[2022-07-10 19:17] LABS: ALBUMIN 4.6 GM/DL (3.2-4.5); CHLORIDE 104 MMOL/L (98-107); SODIUM 137 MMOL/L (135-145)
[2022-07-10 19:19] LABS: CALCIUM 9.4 MG/DL (8.5-10.1)
[2022-07-10 19:20] LABS: GLUCOSE 111 MG/DL (70-105); TOTAL PROTEIN 7.4 GM/DL (6.4-8.2)
[2022-07-10 19:21] LABS: CARBON DIOXIDE 18 MMOL/L (21-32)
[2022-07-10 19:22] LABS: BILIRUBIN,TOTAL 0.4 MG/DL (0.1-1.0)
[2022-07-10 19:23] LABS: ALKALINE PHOSPHATASE 83 U/L (40-136)
[2022-07-10 19:24] LABS: CREATININE SERUM 1.22 MG/DL (0.60-1.30); GFR ESTIMATED 81
[2022-07-10 19:25] LABS: BUN/CREATININE RATIO 11
[2022-07-10 19:27] LABS: BILIRUBIN,URINE NEGATIVE (NEGATIVE); CLARITY,URINE CLEAR; COLOR,URINE YELLOW; GLUCOSE, URINE (UA) NEGATIVE (NEGATIVE); KETONES,URINE NEGATIVE (NEGATIVE); LEUKOCYTE ESTERASE ,URINE NEGATIVE (NEGATIVE); NITRITE,URINE NEGATIVE (NEGATIVE); PROTEIN,URINE NEGATIVE (NEGATIVE)
[2022-07-10 19:27] LABS: ALANINE AMINOTRANSFERASE 24 U/L (0-55); MAGNESIUM 2.1 MG/DL (1.6-2.4)
[2022-07-10 19:28] LABS: CREATINE KINASE 230 U/L (30-200)
[2022-07-10 19:34] LABS: CREATINE KINASE MB 1.9 NG/ML (<6.6)
--- NOTE | 2022-07-10 19:41 | Diagnostic Imaging Report ---
EXAMINATION: Chest radiograph, portable AP view. DATE: July 10, 2022. INDICATION: 32-year-old male, seizure. COMPARISON: None. FINDINGS: Heart size and mediastinal contours are unremarkable. There is no identified pneumothorax. There is no large pleural effusion. There is no identified focal airspace consolidation. IMPRESSION: No identified acute cardiopulmonary abnormality. Dictated by: Dictated on workstation # [id number]
--- NOTE | 2022-07-10 19:46 | Diagnostic Imaging Report ---
PROCEDURE: CT head, face, and cervical spine without contrast. TECHNIQUE: Multiple contiguous axial images were obtained through the head, neck, and facial bones without the use of intravenous contrast. Sagittal and coronal reformations through the cervical spine and facial bones were also performed. Auto Exposure Controls were utilized during the CT exam to meet ALARA standards for radiation dose reduction. INDICATION: Trauma. Face and head injury. Possible seizure. COMPARISON: None. FINDINGS: CT HEAD: No intracranial hemorrhage, mass effect, hydrocephalus, or extra-axial fluid collections. No CT evidence of a territorial infarction. The skull base and calvarium are intact. Mastoids are clear. CT MAXILLOFACIAL: Polypoid mucosal thickening in the maxillary sinuses. No maxillofacial fractures. Evaluation of the mandible is limited by motion. Normal alignment of the temporomandibular joints. The orbits are unremarkable. CT cervical spine: Normal alignment. Vertebral body heights are preserved. No fractures. No substantial spondylotic change. Visualized paravertebral soft tissues are unremarkable. Lung apices are clear. IMPRESSION: No acute intracranial or cervical spine CT findings. No maxillofacial fractures. Dictated by: Dictated on workstation # [id number]
[2022-07-10 19:50] LABS: ACETAMINOPHEN < 10 UG/ML (10-30)
[2022-07-10 19:58] LABS: BACTERIA,URINE TRACE /HPF; RBC,URINE 0-2 /HPF; WBC,URINE 0-2 /HPF
[2022-07-10 19:59] LABS: URINE OTHER LG SPERM /HPF
[2022-07-10 20:00] LABS: AMPHETAMINE SCREEN, URINE NEGATIVE (NEGATIVE); BARBITURATE SCREEN URINE NEGATIVE (NEGATIVE); BENZODIAZEPINES SCREEN URINE NEGATIVE (NEGATIVE); CANNABINOID SCREEN, URINE NEGATIVE (NEGATIVE); COCAINE SCREEN URINE NEGATIVE (NEGATIVE); METHADONE STAT NEGATIVE (NEGATIVE); OPIATE SCREEN URINE NEGATIVE (NEGATIVE); OXYCODONE STAT NEGATIVE (NEGATIVE); PROPOXYPHENE STAT NEGATIVE (NEGATIVE); TRICYCLIC ANTIDEPRESSANTS SCRE NEGATIVE (NEGATIVE)
[2022-07-10] MEDS ORDERED: LORazepam 0.5 MG (ATIVAN) TABLET PO STA (20:28)
[2022-07-10] MEDS ORDERED: lisINopril 20 MG (PRINIVIL) TABLET PO ONE (20:45)
[2022-07-10 21:06] VITALS: BP 151/113
[2022-07-10] MEDS ORDERED: NS IV 500 ML 500 ML IV PRN (21:45)
[2022-07-10] MEDS ORDERED: ENOXAPARIN 40 MG/0.4 ML (LOVENOX) SYR SC SCH (22:00)
[2022-07-10] MEDS ORDERED: D5 1/2 NS 1000 ML IV SOLUTION 1,000 ML IV PRN (22:15)
[2022-07-10] MEDS ORDERED: lisINopril 10 MG (PRINIVIL) TABLET PO PRN (22:15)
[2022-07-10] MEDS ORDERED: LORazepam 1 MG (ATIVAN) TAB PO PRN (22:15)
[2022-07-10] MEDS ORDERED: LORazepam INJ 2 MG/ML (ATIVAN) VIAL IM/IV PRN (22:15)
[2022-07-10] MEDS ORDERED: LACTATED RINGERS 1,000 ML IV SCH (22:15)
[2022-07-10] MEDS ORDERED: ONDANSETRON 4 MG/2 ML (SDV) Z0FRAN IV PRN (22:15)
[2022-07-10] MEDS ORDERED: 1/2 NS IV SOLUTION 1,000 ML IV PRN (22:15)
[2022-07-10] MEDS ORDERED: ANTACID SUSP 30 ML UDC (MYLANTA) PO PRN (22:15)
[2022-07-10] MEDS ORDERED: LORazepam INJ 2 MG/ML (ATIVAN) VIAL IV PRN (22:15)
[2022-07-10] MEDS ORDERED: ONDANSETRON 4 MG (ZOFRAN) ORAL DISSOLVE TAB SL PRN (22:15)
[2022-07-10] MEDS ORDERED: THIAMINE 100 MG/ML 2 ML (VITAMIN B-1) VIAL IM ONE (22:21)
[2022-07-10 22:30] LABS: ALBUMIN 4.6 GM/DL (3.2-4.5); CHLORIDE 104 MMOL/L (98-107); POTASSIUM 3.7 MMOL/L (3.6-5.0); SODIUM 135 MMOL/L (135-145)
[2022-07-10 22:31] LABS: CALCIUM 9.4 MG/DL (8.5-10.1)
[2022-07-10 22:32] LABS: GLUCOSE 102 MG/DL (70-105)
[2022-07-10 22:33] LABS: CARBON DIOXIDE 21 MMOL/L (21-32); PROTHROMBIN TIME PATIENT 13.8 SEC (12.2-14.7); TOTAL PROTEIN 7.5 GM/DL (6.4-8.2)
[2022-07-10 22:34] LABS: BILIRUBIN,TOTAL 0.7 MG/DL (0.1-1.0)
[2022-07-10 22:36] LABS: ALKALINE PHOSPHATASE 85 U/L (40-136); CREATININE SERUM 0.95 MG/DL (0.60-1.30); GFR ESTIMATED 109
[2022-07-10 22:37] LABS: BUN/CREATININE RATIO 12
[2022-07-10 22:39] LABS: ALANINE AMINOTRANSFERASE 25 U/L (0-55)
[2022-07-10] MEDS: D5 1/2 NS W/KCL 20 MEQ/L 1,000 ML IV SCH (22:48)
[2022-07-11 02:55] LABS: BILIRUBIN,URINE NEGATIVE (NEGATIVE); CLARITY,URINE CLEAR; COLOR,URINE YELLOW; GLUCOSE, URINE (UA) NEGATIVE (NEGATIVE); KETONES,URINE NEGATIVE (NEGATIVE); LEUKOCYTE ESTERASE ,URINE NEGATIVE (NEGATIVE); NITRITE,URINE NEGATIVE (NEGATIVE); PROTEIN,URINE NEGATIVE (NEGATIVE)
[2022-07-11 03:02] LABS: BACTERIA,URINE NEGATIVE /HPF
[2022-07-11] MEDS ORDERED: ACETAMINOPHEN 325 MG TABLET ONE (04:25)
[2022-07-11] MEDS: D5 1/2 NS W/KCL 20 MEQ/L 1,000 ML IV SCH (04:28)
[2022-07-11] MEDS ORDERED: ACETAMINOPHEN 325 MG TABLET PO PRN (04:30)
[2022-07-11 05:04] LABS: BASOPHILS % (AUTO) 0 % (0-10); EOSINOPHILS # (AUTO) 0.1 10^3/uL (0.0-0.3); EOSINOPHILS % (AUTO) 1 % (0-10); HEMATOCRIT 39 % (40-54); LYMPHOCYTES # (AUTO) 2.4 10^3/uL (1.0-4.0); LYMPHOCYTES % (AUTO) 25 % (12-44); MEAN CORPUSCULAR HEMOGLOBIN 31 pg (25-34); MEAN CORPUSCULAR HGB CONC 36 g/dL (32-36); MEAN CORPUSCULAR VOLUME 87 fL (80-99); MEAN PLATELET VOLUME 9.2 fL (9.0-12.2); MONOCYTES # (AUTO) 0.8 10^3/uL (0.0-1.0); MONOCYTES % (AUTO) 8 % (0-12); NEUTROPHILS # (AUTO) 6.2 10^3/uL (1.8-7.8); NEUTROPHILS % (AUTO) 65 % (42-75); PLATELET COUNT 227 10^3/uL (130-400); WHITE BLOOD COUNT 9.6 10^3/uL (4.3-11.0)
[2022-07-11 05:24] LABS: ALBUMIN 4.3 GM/DL (3.2-4.5); POTASSIUM 3.7 MMOL/L (3.6-5.0)
[2022-07-11 05:25] LABS: CALCIUM 9.1 MG/DL (8.5-10.1)
[2022-07-11 05:26] LABS: TOTAL PROTEIN 6.9 GM/DL (6.4-8.2)
[2022-07-11 05:28] LABS: BILIRUBIN,TOTAL 0.6 MG/DL (0.1-1.0)
[2022-07-11 05:29] LABS: PHOSPHORUS 3.6 MG/DL (2.3-4.7)
[2022-07-11 05:30] LABS: CREATININE SERUM 0.96 MG/DL (0.60-1.30)
[2022-07-11 05:32] LABS: MAGNESIUM 2.2 MG/DL (1.6-2.4)
[2022-07-11] MEDS ORDERED: POTASSIUM CL 10MEQ/50ML IVPB 50 ML IV SCH (06:00)
[2022-07-11] MEDS ORDERED: MAGNESIUM 1 GM/100 ML IVPB 100 ML IV SCH (06:00)
[2022-07-11] MEDS ORDERED: KCL 20 MEQ TAB (K-DUR) PO SCH (06:00)
[2022-07-11] MEDS ORDERED: MULTIVIT W/MINERALS TAB (THERAGRAN M) PO SCH (07:00)
--- NOTE | 2022-07-11 08:43 | Tele-ICU Consult ---
History of Present Illness History of Present Illness Date Seen by Provider: Jul 11, 2022 Time Seen by Provider: 11:59 History of Present Illness 32 yo M brought to ED after Sz, Had bumped head earlier in the day. Had a Sz a few years ago, CT head, cervical spine and facial bones showed no abnormality Pt has been drinking heavily lately Not on OAC Besides EtOH uses methamphetamines UDS negative EtOH < 10 PMH HTN BP in ED 143/100 Allergies and Home Medications Allergies Coded Allergies: No Known Drug Allergies (Unverified , 12/25/11) Home Medications Amlodipine Besylate 5 Mg Tablet, 5 MG PO DAILY, (Reported) Erythromycin Base 1 Gm Oint...g., 0 OP Q4H 1/2 inch Prescribed by: SO PAINTER on 09/11/19 1138 Methocarbamol 750 Mg Tablet, 750 MG PO Q4H PRN for PAIN-MODERATE (5-7) Prescribed by: CANDELARIO PENA on 04/21/202201 Naproxen 500 Mg Tablet, 500 MG PO BID PRN for PAIN-SEVERE (8-10) Prescribed by: CANDELARIO PENA on 04/21/202201 Nitrofurantoin Macrocrystal 100 Mg Capsule, 1 CAP PO BID, (Reported) Clcr <60 mL/minute: Contraindicated Phenytoin 50 Mg Tab.chew, 300 MG PO DAILY, (Reported) Quetiapine Fumarate 100 Mg Tablet, 100 MG PO BID, (Reported) Sulfamethoxazole/Trimethoprim 1 Each Tablet, 1 EACH PO BID Prescribed by: SO PAINTER on 09/11/19 1138 [Trazodone] , 150 MG PO HS, (Reported) Past Medical/Social/Family Hx Patient Social History Tobacco Use?: Yes Tobacco type used: Cigarettes Smoking Status: Current Everyday Smoker Use of E-Cig and/or Vaping dev: Yes E-Cig or Vaping type used: Nicotine E-Cig and/or Vaping Freq: Current Someday User Substance use?: No Substance type: Methamphetamine, Marijuana Alcohol Use?: Yes Alcohol type: Beer, Hard Liquor Alcohol Frequency: Daily Pt stated abuse/neglect: No Immunizations Up To Date Influenza Vaccine Up-to-Date: No; Not Current Tetanus Booster (TDap): Less Than 5 Years Current Status Advance Directives: No Communicates: Verbally Primary Language: Northern Irish Preferred Spoken Language: Northern Irish Is interpretation needed?: No Implanted or Applied Medical D: None Family Medical History Family Hx: PT WAS ADMITTED 12/2011 FOR NEW ONSET SEIZURES PT WAS DRINKING HEAVILY EVERY DAY AT THAT TIME, ADDITIONALLY, HE WAS ALSO USING METHAMPHETAMINES AND MARIJUANA. EEG DONE AT THAT TIME WAS NORMAL. NO NEUROLOGY FOLLOW UP. SEIZURES WERE FELT TO BE DRUG AND ALCOHOL RELATED/ ALCOHOL-WITHDRAWL RELATED Review of Systems Constitutional: see HPI EENTM: see HPI Respiratory: see HPI Cardiovascular: see HPI Gastrointestinal: see HPI Genitourinary: see HPI Musculoskeletal: see HPI Skin: see HPI Psychiatric/Neurological: See HPI Focused Exam Height, Weight, BMI Height: 6'1.00" Weight: 260lbs. oz. 117.478446yt; 33.10 BMI Method:Stated Exam Exam Patient acknowledged, consented, and participated in this virtual visit which was conducted using real time audio/video Vital Signs Date Time Temp Pulse Resp B/P (MAP) Pulse Ox O2 Delivery O2 Flow Rate FiO2 07/11/22 06:00 74 25 128/70 (89) 99 Room Air 07/11/22 05:00 74 19 152/107 (122) 100 Room Air 07/11/22 04:19 97 Room Air 07/11/22 04:18 37.0 07/11/22 04:18 Room Air 07/11/22 04:00 89 12 162/92 (115) 97 Room Air 07/11/22 03:00 80 13 117/73 (88) 95 Room Air 07/11/22 02:00 86 22 142/87 (105) 94 Room Air 07/11/22 01:00 108 07/11/22 01:00 103 11 156/108 (124) 97 Room Air 07/11/22 00:00 102 24 159/94 (115) Room Air 07/10/22 23:56 98 Room Air 07/10/22 23:32 38.0 07/10/22 23:00 93 93 225/130 (161) 97 Room Air 07/10/22 22:00 96 25 164/116 (132) 96 Room Air 07/10/22 21:41 38.5 83 18 191/119 (143) 96 07/10/22 21:35 98 Room Air 07/10/22 21:32 98 07/10/22 21:06 36.8 105 20 151/113 96 Room Air 07/10/22 18:47 36.8 107 24 154/100 (118 96 I & O 07/11/22 07:00 Intake Total 2500 ml Output Total 2250 ml Balance 250 ml Height & Weight Height: 6'1.00" Weight: 260lbs. oz. 117.704037xm; 33.10 BMI Method:Stated General Appearance: Other (PT IS SOMEWHAT DROWSY AND LETHARGIC, SLOW MENTATION, AND CONFUSED--CONSISTENT WITH POST-ICTAL STATE. HE IS NOT IN ANY ACUTE DISTRESS. HE IS COOPERATIVE. SPEECH IS CLEAR. NO INCONTINENCE. ) HEENT: PERRL/EOMI, TMs Normal, Normal ENT Inspection, Pharynx Normal, Other (HAS OLD SCABBED WOUND TO BRIDGE OF NOSE, WITH MILD SURROUNDING ERYTHEMA. NO FLUCUTANCE OR DRAINAGE. HAS SMALL RED SPOT TO BACK OF HEADK--FAMILY REPORT THIS IS FROM HIM BUMPING THE BACK OF HIS HEAD EARLIER TODAY ON AN INVERSION TABLE. NO INTRA-ORAL / MOUTH INJURIES) Neck: Full Range of Motion, Normal Inspection, Non Tender, Supple Respiratory: Normal Breath Sounds, No Accessory Muscle Use, No Respiratory Distress Cardiovascular: No Edema, No Murmur, Tachycardia Capillary Refill: Less Than 3 Seconds Extremity: Normal Capillary Refill, Normal Inspection, Normal Range of Motion, Non Tender, No Calf Tenderness, No Pedal Edema Neurologic/Psychiatric: Alert, No Motor/Sensory Deficits, field interviewer II-XII Norm as Tested, Other (MENTATION NOTED ABOVE. ORIENTED TO PERSON AND TOWN. OTHERWISE IS DISOREIENTED AND NO RECOLLECTION OF EVENTS PRIOR TO ARRIVAL OR EVENTS EARLIER TODAY OR ANY TIME RECENTLY. ) Skin: Normal Color, Warm/Dry, Other ( ABOVE) Results Lab Laboratory Tests 07/10/22 18:45 07/10/22 22:08 07/11/22 04:05 Assessment/Plan Assessment/Plan probable EtOH withdrawal Sz, PRN Ativan ordered, Mg, Folic acid and THiamine given Pt left AMA before I could hear about physical exam Critical Care: Critically Ill Patient Time spent with patient (mins): 30 PRINCE GUEVARA MD Jul 11, 2022 08:43
[2022-07-11] MEDS ORDERED: FOLIC ACID 1 MG TAB PO SCH (09:00)
[2022-07-11] MEDS ORDERED: THIAMINE INJECTION 100 MG, FOLIC ACID INJECTION 1 MG, MAGNESIUM SULFATE 2 GM, VITAMIN M... IV SCH ×5 (09:00)
[2022-07-11] MEDS ORDERED: lisINopril 20 MG (PRINIVIL) TABLET PO SCH (09:00)
--- NOTE | 2022-07-11 16:53 | Short Stay Summary-Hospitalist ---
History of Present Illness HPI/Chief Complaint Patient is a 32-year-old white male with longstanding alcohol use disorder who had a witnessed seizure that lasted about 30 seconds at [facility] he was brought to emergency room where he was still confused and lethargic compatible with postictal state. He had had a very similar admission following probably the last time he stopped drinking for more than a day or 2 10 years ago. Apparently has history of bipolar disorder but has been noncompliant with all Medications. Transferred to the unit in stable condition after unremarkable x- ray evaluations including CT head. I was notified by nursing staff that he had left AMA alert and oriented voicing no complaints. This occurred abruptly and prior to chance to evaluate the patient. Date Seen 07/11/22 Time Seen by a Provider: 00:00 Attending Physician [facility] PCP Admitting Physician: Dinora Ball MD Attending Physician: Dinora Ball MD Referring Physician Date of Admission Jul 10, 2022 at 20:05 Home Medications & Allergies Home Medications Reviewed patient Home Medication Reconciliation performed by pharmacy medication reconciliations senior quality control technician and/or nursing. Patients Allergies have been reviewed. Allergies Allergies Coded Allergies No Known Drug Allergies (Unverified12/25/11) Past Ootrvrw-Frertu-Byhezb Hx Patient Social History Tobacco Use?: Yes Tobacco type used: Cigarettes Smoking Status: Current Everyday Smoker Use of E-Cig and/or Vaping dev: Yes E-Cig or Vaping type used: Nicotine Use of E-Cig and/or Vaping Dez: Current Someday User Substance use?: No Substance type: Methamphetamine, Marijuana Alcohol Use?: Yes Alcohol type: Beer, Hard Liquor Alcohol Frequency: Daily Pt feels they are or have been: No Immunizations Up To Date Date of Influenza Vaccine: Aug 05, 2019 Tetanus Booster (TDap): Less Than 5 Years PED Vaccines UTD: Yes Seasonal Allergies Seasonal Allergies: No Current Status Advance Directives: No Communicates: Verbally Primary Language: American Preferred Spoken Language: American Is interpretation needed?: No Implanted or Applied Medical D: None Past Medical History Hypertension Sleep Difficulties, Anxiety, Bipolar Blood Disorders: No Family Medical History No Pertinent Family Hx PT WAS ADMITTED 12/2011 FOR NEW ONSET SEIZURES PT WAS DRINKING HEAVILY EVERY DAY AT THAT TIME, ADDITIONALLY, HE WAS ALSO USING METHAMPHETAMINES AND MARIJUANA. EEG DONE AT THAT TIME WAS NORMAL. NO NEUROLOGY FOLLOW UP. SEIZURES WERE FELT TO BE DRUG AND ALCOHOL RELATED/ ALCOHOL-WITHDRAWL RELATED Review of Systems ROS-Unable to Obtain: Patient left AMA prior to evaluation Constitutional: see HPI Physical Exam Physical Exam Vital Signs Vital Signs - First Documented 07/10/22 07/10/22 18:47 21:06 Temp 36.8 Pulse 107 Resp 24 B/P (MAP) 154/100 (118) Pulse Ox 96 O2 Delivery Room Air Capillary Refill : Less Than 3 Seconds Height, Weight, BMI Height: 6'1.00" Weight: 260lbs. oz. 117.136502ou; 33.10 BMI Method:Stated General Appearance: Other (PT IS SOMEWHAT DROWSY AND LETHARGIC, SLOW MENTATION, AND CONFUSED--CONSISTENT WITH POST-ICTAL STATE. HE IS NOT IN ANY ACUTE DISTRESS. HE IS COOPERATIVE. SPEECH IS CLEAR. NO INCONTINENCE. ) HEENT: PERRL/EOMI, TMs Normal, Normal ENT Inspection, Pharynx Normal, Other (HAS OLD SCABBED WOUND TO BRIDGE OF NOSE, WITH MILD SURROUNDING ERYTHEMA. NO FLUCUTANCE OR DRAINAGE. HAS SMALL RED SPOT TO BACK OF HEADK--FAMILY REPORT THIS IS FROM HIM BUMPING THE BACK OF HIS HEAD EARLIER TODAY ON AN INVERSION TABLE. NO INTRA-ORAL / MOUTH INJURIES) Neck: Full Range of Motion, Normal Inspection, Non Tender, Supple Respiratory: Normal Breath Sounds, No Accessory Muscle Use, No Respiratory Distress Cardiovascular: No Edema, No Murmur, Tachycardia Gastrointestinal: Soft Back: Normal Inspection, No CVA Tenderness, No Vertebral Tenderness Extremity: Normal Capillary Refill, Normal Inspection, Normal Range of Motion, Non Tender, No Calf Tenderness, No Pedal Edema Neurologic/Psychiatric: Alert, No Motor/Sensory Deficits, pillar worker II-XII Norm as Tested, Other (MENTATION NOTED ABOVE. ORIENTED TO PERSON AND TOWN. OTHERWISE IS DISOREIENTED AND NO RECOLLECTION OF EVENTS PRIOR TO ARRIVAL OR EVENTS EARLIER TODAY OR ANY TIME RECENTLY. ) Skin: Normal Color, Warm/Dry, Other ( ABOVE) Results Results/Procedures Labs Laboratory Tests 07/10/22 18:45 07/10/22 22:08 07/11/22 04:05 Patient resulted labs reviewed. Short Stay Diagnosis Discharge Diagnosis-Short Stay Admission Diagnosis Alcohol withdrawal seizure Final Discharge Diagnosis As per above Conclusion Plan Patient left AGAINST MEDICAL ADVICE before my chance to evaluate him. The physical examination noted physical examination noted in this record was auto populated and not performed by myself.Was reported by staff to be oriented with no confusion and no reports of depression or suicidal ideation stating that he had to smoke but nicotine replacement was not adequate. Copy Copies To 1: [facility]/DINORA ESPINOZA MD Jul 11, 2022 16:53
== END 2022-07-11 07:20 | disposition left against medical advice (07) | DRG 894 ==
LOC: EDUNIT# 18:42 → ER 18:43 → ICU 20:05
PROVIDERS: ADMIT Internal Medicine; ATTEND Internal Medicine
DX: F10.239 Alcohol dependence with withdrawal, unspecified (principal); G40.509 Epileptic seizures related to external causes, not intractable, without status epilepticus; I10 Essential (primary) hypertension; F31.9 Bipolar disorder, unspecified; S01.21XA Laceration without foreign body of nose, initial encounter; L08.9 Local infection of the skin and subcutaneous tissue, unspecified; S09.8XXA Other specified injuries of head, initial encounter; F41.9 Anxiety disorder, unspecified; Z20.822 Contact with and (suspected) exposure to COVID-19; F17.210 Nicotine dependence, cigarettes, uncomplicated; F15.90 Other stimulant use, unspecified, uncomplicated; F12.90 Cannabis use, unspecified, uncomplicated; Z91.14 Patient's other noncompliance with medication regimen; Y90.0 Blood alcohol level of less than 20 mg/100 ml; X58.XXXA Exposure to other specified factors, initial encounter
CPT/HCPCS: 36415; 70450; 70486; 71045; 72125; 80053; 80306; 80320; 80329; 81000; 82550; 82553; 83735; 83874; 84100; 85025; 85610; 85730; 87081; 87389; 87636; 90471; 90715; 93005; 93041; 96360

== ENCOUNTER 2023-04-08 19:14 | Outpatient (CLI) | payer OTHER | END 2023-04-09 06:45 | disposition home or self-care (01) | LOC: SLEEP 19:14 | PROVIDERS: ATTEND Nurse Practitioner Family | DX: G47.9 Sleep disorder, unspecified (principal); I10 Essential (primary) hypertension | CPT/HCPCS: 95810 ==